=== PATIENT | male | born 1940 | race Caucasian/White ===

== ENCOUNTER 2018-12-09 09:11 | Inpatient (IN) | payer MEDICARE ==
--- NOTE | 2018-11-30 15:32 | HP ---
HISTORY AND PHYSICAL: DATE OF ADMISSION/SURGERY: 12/09/18 DATE OF OFFICE VISIT: 11/28/18 SURGEON: Patricia Beverly MD.* (DICTATED BY AMBER SANDERS) PROCEDURE: Left total knee arthroplasty. CHIEF COMPLAINT: Left knee pain. HISTORY OF PRESENT ILLNESS: Mr. Yen is a 77-year-old gentleman with end- stage osteoarthritis of the left knee. He has failed conservative treatment and elected to proceed with a left total knee arthroplasty. PAST MEDICAL HISTORY: COPD, history of stroke, chronic kidney disease, diabetes , GERD, and skin cancer. PAST SURGICAL HISTORY: Teeth extraction and surgery for a fractured arm. CURRENT MEDICATIONS: 1. Omeprazole 20 mg a day. 2. Atorvastatin calcium 40 mg q.h.s. 3. Sertraline 100 mg daily. 4. Tylenol with Codeine. 5. Colace. 6. Vitamin B12. 7. Toprol 100 mg daily. 8. Amlodipine. 9. Centrum. 10. Adult vitamin. 11. Talavera' Colon Health. 12. Lutein. ALLERGIES: No known drug allergies. FAMILY HISTORY: Cancer, multiple sclerosis, diabetes, and stroke. SOCIAL HISTORY: This 77-year-old gentleman lives with his . He is a former smoker. He does not use drugs or alcohol. REVIEW OF SYSTEMS: A complete 14-point review of systems was reviewed with the patient. It was positive for GERD, diabetes, history of stroke, COPD, and stage 2 kidney disease. He denies a history of DVT, PE, hepatitis, HIV, or anesthesia problems. PHYSICAL EXAMINATION GENERAL: He is well developed, well nourished, in no acute distress. VITAL SIGNS: He stands 69 inches tall, weighs 230 pounds. Blood pressure 142/ 74, heart rate 74. HEENT: Normocephalic, atraumatic. NECK: Supple. No palpable lymph nodes. PULMONARY: The lungs are clear to auscultation bilaterally. CARDIO: Regular rate and rhythm. Strong S1, S2. ABDOMEN: Soft, nontender, nondistended. NEUROLOGIC: He is alert and oriented x3. MUSCULOSKELETAL: Left lower extremity: The skin is intact. There are no open wounds or abrasions. Range of motion is 10 to 120 degrees of flexion with patellofemoral crepitus. He has a 2+ dorsalis pedis pulse and intact sensation. He is able to dorsiflex and plantarflex. ASSESSMENT AND PLAN: Mr. Yen is a 77-year-old gentleman with severe end- stage osteoarthritis of the left knee. He has failed conservative treatment and elected to proceed with a left total knee arthroplasty. The surgery is scheduled for 12/09/[address] Beverly discussed the risks and benefits of the surgery at today's visit and all of his questions were answered. He will follow up with Dr. Beverly 2 weeks after the surgery. No TXA will be used in this patient because of his history of stroke and stage 2 kidney disease. AMBER SANDERS [id number]/[facility] #: [id number] MTDD
[~2018-12-09 09:11] MED LIST: Acetaminophen TAB* 325 MG PO ONE; Buffered Lidocaine 1% SYRIN* 1 ML/SYRINGE INTRADERM ONE; Lactated Ringers 1000 ML Bag* 1,000 ML IV SCH
[2018-12-09] MEDS ORDERED: ceFAZolin 2 GM PREMIX in ORs 2 GM/50 ML BAG ONE (09:37)
[2018-12-09] MEDS ORDERED: Acetaminophen TAB* 325 MG ONE (09:37)
[2018-12-09] MEDS ORDERED: Buffered Lidocaine 1% SYRIN* 1 ML/SYRINGE INTRADERM ONE (09:38)
[2018-12-09] MEDS ORDERED: fentaNYL* 50 MCG/ML 2 ML VIAL (100 MCG VIAL) ONE ×2 (09:50→09:51)
[2018-12-09] MEDS ORDERED: Midazolam* 1 MG/ML 2 ML VIAL (2 MG) ONE (09:50)
[2018-12-09] MEDS ORDERED: Propofol* 500 MG/50 ML BTL ONE (09:51)
[2018-12-09] MEDS ORDERED: Lidocaine 2% PF* 10 ML AMP ONE (09:51)
[2018-12-09] MEDS ORDERED: ROPIVACAINE 5 MG/ML 30 ML BTL (0.5%) ONE ×2 (11:50→12:24)
[2018-12-09] MEDS ORDERED: Bupivacaine 0.5% SDV PF* 30ML VIAL ONE (13:00)
[2018-12-09] MEDS ORDERED: EPHEDrine (Pressors)* 50 MG/ML VIAL ONE (13:38)
[2018-12-09] MEDS ORDERED: Morphine INJ* 2 MG/ML 1 ML SYRINGE (TWO MG - NEW SYRINGE VERSION) IV PRN (14:52)
[2018-12-09] MEDS ORDERED: oxyCODONE TAB* 5 MG TAB PO PRN (14:52)
[2018-12-09] MEDS ORDERED: Magnesium Hydroxide LIQ* 30 ML UDC PO PRN (14:52)
[2018-12-09] MEDS ORDERED: Ondansetron ODT TAB* 4 MG PO PRN (14:52)
[2018-12-09] MEDS ORDERED: Temazepam CAP* 15 MG PO PRN (14:52)
[2018-12-09] MEDS ORDERED: Ondansetron INJ* 2 MG/ML VIAL IV PRN (14:52)
[2018-12-09] MEDS ORDERED: diPHENhydraMINE PO* 25 MG PO PRN (14:52)
[2018-12-09] MEDS ORDERED: oxyCODONE/Acetamin 5/325 MG* TAB PO PRN (14:52)
[2018-12-09] MEDS ORDERED: diPHENhydraMINE IV* 50 MG/ML 1 ml VIAL (BENADRYL) IV PRN (14:52)
[2018-12-09] MEDS ORDERED: Polyethylene Glycol 3350* 17 GM PACKET PO PRN (14:52)
--- NOTE | 2018-12-09 16:39 | OP ---
Operative Report - Blank - Operative Report Date of Operation: 12/09/18 Note: ANNA MCKEON 1940 Date of Surgery: 12/09/18 Patricia Beverly MD Weight Loss Consultant: Jenifer CLARK did help throughout the procedure with preparation of the knee, wound retraction, manipulation of the knee, and wound closure. Anesthesiologist: Porsche KIMBALL Anesthesia Type: Spinal Preoperative Diagnosis: Left severe degenerative osteoarthritis of the knee Postoperative Diagnosis: As above Procedure Performed: Left Total Knee Arthroplasty Tourniquet time: 43 minutes Complications: None Specimen: Bone and cartilage from the left knee joint sent to pathology. Hardware Used: Cemented Daniel and Nephew total knee hardware was used - For the femur a size 6 left legion posterior stabilized femoral component, for the tibia a size 5 left sophia II tibial baseplate, for the insert a size 9mm 5-6 posterior stabilized articular polyethylene insert, and for the patella a size 32 3-peg all poly patella. Brief History/Indication: ANNA MCKEON was known in clinic and had a history of severe left knee pain and swelling. He failed conservative treatment with anti-inflammatories, pain pills, intra-articular injections and physical therapy. He elected to undergo left total knee arthroplasty due to continued pain and decreased quality of life. Radiographs showed severe end stage osteoarthritis of the knee with bone on bone contact. Informed consent was obtained from the patient. He understood the risks of surgery included but were not limited to: bleeding, infection, damage to nearby structures, intraoperative fracture, nerve palsy, failure of the hardware, early loosening, knee stiffness or loss of motion, anesthesia complications, stroke, heart attack , blood clot and . He wished to proceed. Intra-Operative Findings: Intraoperatively the patient was noted to have severe loss of cartilage in all 3 compartments of the knee. Description of the Procedure: ANNA MCKEON was identified in the preanesthesia unit. His left knee was marked as the correct operative side. Informed consent was signed and placed in the chart. The patient was taken to the operating room and placed under anesthesia without complication. A arriaga catheter was placed. A tourniquet was placed on the left thigh. The left lower extremity was prepped and draped in the usual sterile fashion. Preoperative time-out was made to correctly identify the patient, side and site. Appropriate intraoperative antibiotics were given within one hour of incision. Tourniquet was inflated. A midline incision was made and carried sharply down to the extensor mechanism. A new 10 blade was used to make a standard medial parapatellar arthrotomy. The patella was subluxed laterally. Electrocautery was used to dissect soft tissue off the superomedial tibia to the midsagittal plane. The knee was flexed up. The anterior horn of the lateral meniscus and the ACL were sharply incised. A drill was used to enter the distal femur. The intramedullary distal femoral cutting guide was pinned on the distal femur. The oscillating saw was used to make the distal femoral cut. The external rotation guide was pinned on the distal femur and the distal femur was sized to a size 6. The size 6 multi-cutting jig was pinned on the distal femur. The oscillating saw was used to make the appropriate 4 chamfer cuts. Next the PCL was completely released. The extramedullary tibial cutting guide was pinned on the proximal tibia and the oscillating saw was used to make the proximal tibial cut perpendicular to the mechanical axis of the tibia. The bone was carefully removed. The knee was brought out into full extension. The spacer block was placed and had excellent fit with the knee in full extension. The medial and lateral ligaments were well balanced. The flexion and extension gaps were well balanced. The knee was flexed up. [employer] medical front desk coordinator was placed both medially and laterally. Any remaining meniscus was removed with electrocautery. Curved osteotome was used to remove any posterior osteophytes. The tibial tray and drop filipe were placed and confirmed a satisfactory tibial cut. The size 6 left femoral trial was impacted onto the distal femur. This trial had excellent fit and stability. The box for the posterior stabilized implant was prepared using a box cut osteotome and a reamer. Next a tibial tray trial and 9 mm insert trial was placed. The knee was taken through a range of motion and had full extension to 130 degrees of flexion. Patellofemoral tracking was satisfactory. The patella was inverted and sized to a size 32. Three peg holes were drilled through the size 32 drill guide. The trial patella was placed and the knee was taken through a range of motion. There was satisfactory patellofemoral tracking. All trials were removed. The tibia was subluxed anteriorly and sized to a size 5. The proximal tibial was prepared with a size 5 keel punch. All bony cut surfaces were irrigated with sterile saline and dried. Final implants were cemented into place starting with the tibia, followed by the femur, and last the patella. A 9 mm insert trial was placed and the knee was brought into full extension. Tourniquet was turned down and the knee was copiously irrigated with sterile saline. Electrocautery was used to obtain meticulous hemostasis. Once the cement had fully cured, the insert trial was removed. Any excess cement was removed from around the hardware and capsule. Final insert chosen was a 9 mm posterior stabilized Sophia II articular insert size 5-6. Stability of the insert was checked and noted to be stable. The extensor mechanism was closed using number 1 vicryls. The rest of the incision was closed in a layered fashion using 0 and 2-0 vicryls. The skin was closed using 3-0 nylon suture. Sterile xeroform, 4x4s and webril were used to cover the incision. Lio wrap and cold pack were used to cover the dressings. The patients anesthesia was reversed without difficulty. He was taken to the PACU in stable condition. Intended weight-bearing will be as tolerated.
[2018-12-09] MEDS: Lactated Ringers 1000 ML Bag* 1,000 ML IV SCH (17:00)
[2018-12-09] MEDS: oxyCODONE/Acetamin 5/325 MG* TAB PO PRN ×2 (17:57→22:49)
[2018-12-09] MEDS: ceFAZolin 1 GM ADVAN(*) 1 GM in NS 0.9% 50 ML* 50 ML IVPB SCH (19:49)
[2018-12-09] MEDS: Magnesium Hydroxide LIQ* 30 ML UDC PO SCH (21:12)
[2018-12-09] MEDS: Cyclobenzaprine TAB* 10 MG PO PRN (21:14)
[2018-12-09] MEDS: Atorvastatin* 40 MG TAB PO SCH (21:15)
[2018-12-09] MEDS: Docusate CAP* 100 MG PO SCH (21:15)
--- NOTE | 2018-12-09 21:55 | CONS ---
CONSULTATION REPORT: DATE OF CONSULT: 12/09/18 PRIMARY CARE PROVIDER: Leonela Varma MD REQUESTING PROVIDER IN CONSULTATION: AMBER Alanis ATTENDING PHYSICIAN: Amee Armenta DO (dictated by AMBER Younger). REASON FOR CONSULTATION: Co-medical management. HISTORY OF PRESENT ILLNESS/HOSPITAL COURSE: I refer you to Dr. Patricia Beverly's history and physical dated on 11/28/18 for full and complete details, but in short, Mr. Yen is a 77-year-old male with a past medical history of hypertension, hyperlipidemia, prediabetes, history of CVA, who presented to [facility] today for an elective left total knee arthroplasty. The patient is seen postoperatively in his bed. He states that he has left knee pain rated at 8/ 10. He states that he has "trouble talking" since his stroke in 2001, but notes no changes recently. He has no other complaints. PAST MEDICAL HISTORY: 1. Hypertension. 2. Hyperlipidemia. 3. CKD. 4. History of CVA. 5. History of prediabetes. 6. GERD. 7. Skin cancer. PAST SURGICAL HISTORY: Eye, hernia. HOME MEDICATIONS: 1. Acetaminophen with codeine 2 tabs p.o. q.4 hours p.r.n. pain. 2. Amlodipine 10 mg p.o. daily. 3. Atorvastatin 40 mg p.o. at bedtime. 4. Cyanocobalamin 250 mcg p.o. daily. 5. Docusate sodium 100 mg p.o. b.i.d. 6. Lutein 20 mg p.o. daily. 7. Metoprolol succinate 100 mg p.o. daily. 8. Multivitamin/minerals 1 tab p.o. daily. 9. Omeprazole 20 mg p.o. daily. 10. Talavera' Colon Health probiotic 1 tab p.o. daily. 11. Sertraline 100 mg p.o. daily. DRUG ALLERGIES: No known drug allergies. FAMILY HISTORY: Father had CVA. Mother had colon cancer. No family history of diabetes mellitus or heart disease. SOCIAL HISTORY: The patient denies tobacco use. He is a former smoker. He denies alcohol use. REVIEW OF SYSTEMS: A 14-point review of systems has been performed and all the pertinent positives and negatives are in the HPI. All other systems are negative. PHYSICAL EXAM: Vital Signs: Temperature 96.3 temporal, heart rate 78, respiratory rate 16, oxygen saturation 92% on 2 L O2, blood pressure 152/84. General: Mr. Yen is a well-developed, well-nourished, older white male who is sitting up in bed. He appears to be in a moderate amount of discomfort. He is responding appropriately to questioning. Cardiovascular: Regular rate and rhythm with S1 and S2 present without murmurs, rubs, clicks, or gallops. There is no JVD or peripheral edema. Pulmonary: Symmetrical chest expansion without use of accessory muscles. Lungs: Clear to auscultation bilaterally anteriorly without rhonchi, wheezes, or rubs. Abdomen: Flat. Bowel sounds in all quadrants, nontender to palpation, soft. Musculoskeletal: Upper extremities with full range of motion. No pain or deformities. The left knee has a clean, dry and intact dressing in place with Cryo unit in place. Neuro: The patient is a awake. He is alert and oriented x3 with cranial nerves grossly intact. He has sensation intact to the bilateral distal lower extremities. ASSESSMENT AND PLAN: Mr. Yen is a 77-year-old male with a past medical history of hypertension, hyperlipidemia, prediabetes, history of cerebrovascular accident, who presented to [facility] today for an elective left total knee arthroplasty. The patient will be admitted inpatient for: 1. Left total knee arthroplasty. Management per Ortho. Pain control and bowel regimen per Ortho. PT and OT. 2. Hypertension. Continue amlodipine and metoprolol with hold parameters. 3. Hyperlipidemia. Continue atorvastatin. 4. Gastroesophageal reflux disease. Continue omeprazole. 5. Chronic kidney disease. Monitor creatinine. 6. Prediabetes. The patient states he has prediabetes. We will do a.c. fingersticks to monitor for need for intervention. 7. Skin cancer. The patient follows with dermatology (patient cannot remember the name of his unload associate) and his primary care provider, Dr. Leonela Varma. 8. DVT prophylaxis. Per Ortho, apixaban 2.5 mg p.o. b.i.d. 9. Code status. Full code. TIME SPENT: Approximately 30 minutes was spent on this consultation, greater than half of that time was spent with the patient obtaining history, performing physical, and reviewing the plan of care. SANIYA VO, AMBER [id number]/[facility] #: [id number] JOCELYNE
[2018-12-09] MEDS: Acetaminophen TAB* 325 MG PO SCH (22:59)
[2018-12-10] MEDS: traMADol TAB* 50 MG PO PRN (03:47)
[2018-12-10] MEDS: ceFAZolin 1 GM ADVAN(*) 1 GM in NS 0.9% 50 ML* 50 ML IVPB SCH ×2 (03:47→11:13)
[2018-12-10] MEDS: Lactated Ringers 1000 ML Bag* 1,000 ML IV SCH (05:07)
[2018-12-10 05:35] LABS: Hematocrit 39 % (42-52); Hemoglobin 13.1 g/dL (14.0-18.0); Mean Platelet Volume 6.8 fL (7.4-10.4); Platelet Count 183 10^3/uL (150-450)
[2018-12-10 06:01] LABS: BUN/Creatinine Ratio 24.3 (8-20); Calcium 8.8 mg/dL (8.6-10.3); EGFR African American 77.9 (>60); EGFR Non-African American 64.4 (>60); Potassium 3.9 mmol/L (3.5-5.0)
[2018-12-10] MEDS: Acetaminophen TAB* 325 MG PO SCH ×2 (06:26→12:53)
[2018-12-10] MEDS: Cyanocobalamin TAB* 500 MCG PO SCH (08:09)
[2018-12-10] MEDS: oxyCODONE/Acetamin 5/325 MG* TAB PO PRN ×3 (08:09→21:02)
[2018-12-10] MEDS: Apixaban* 2.5 MG TAB PO SCH ×2 (08:10→21:03)
[2018-12-10] MEDS: Sertraline* 100 MG TAB PO SCH (08:10)
[2018-12-10] MEDS: Vitamin THERAPEUTIC TAB PO SCH (08:11)
[2018-12-10] MEDS: Metoprolol Succinate XL TAB* 100 MG PO SCH (08:11)
[2018-12-10] MEDS: Pantoprazole TAB * 40 MG TAB PO SCH (08:11)
[2018-12-10] MEDS: amLODIPine TAB* 5 MG PO SCH (08:11)
[2018-12-10] MEDS: Docusate CAP* 100 MG PO SCH ×2 (08:11→21:03)
[2018-12-10] MEDS: Magnesium Hydroxide LIQ* 30 ML UDC PO SCH ×2 (08:13→21:03)
--- NOTE | 2018-12-10 08:52 | PN ---
Progress Note - Progress Note Date of Service: 12/10/18 SOAP: Subjective: Pt is doing well. Pain is controlled with medication. Denies F/C, CP/SOB or calf pain. low grade temp overnight that resolved Objective: PE- 78 y/o WDWN M, NAD LLE- dressing c/d/i, calf soft NT, +DF/PF ankle, +2 DP pulse. SILT distally Vital Signs Temp Pulse Resp BP Pulse Ox 97.8 F 102 18 158/84 93 12/10/18 07:53 12/10/18 07:53 12/10/18 08:17 12/10/18 07:53 12/10/18 07:53 Laboratory Results - last 24 hr 12/10/18 12/10/18 05:17 05:17 Hgb 13.1 L Hct 39 L Plt Count 183 MPV 6.8 L Sodium 138 Potassium 3.9 Chloride 105 Carbon Dioxide 26 Anion Gap 7 BUN 27 H Creatinine 1.11 Est GFR ( Amer) 77.9 Est GFR (Non-Af Amer) 64.4 BUN/Creatinine Ratio 24.3 H Glucose 150 H Calcium 8.8 Assessment: POD 1 Left TKA Plan: Cont PT/OT, WBAT Percocet for pain Eliquis for DVT prophylaxis Dressing change tomorrow to check incision may require RUSSELL depending on how he does with PT
[2018-12-10] MEDS ORDERED: amLODIPine TAB* 5 MG PO SCH (09:00)
[2018-12-10] MEDS ORDERED: Metoprolol Succinate XL TAB* 100 MG PO SCH (09:00)
[2018-12-10] MEDS: Atorvastatin* 40 MG TAB PO SCH (21:03)
--- NOTE | 2018-12-10 21:08 | PN ---
Subjective Date of Service: 12/10/18 Interval History: Reports did not sleep well last night. States that pain is controlled. Denies chest pain or shortness of breath. Denies n/v/d. Denies abd pain. Family History: Unchanged from Admission Social History: Unchanged from Admission Past Medical History: Unchanged from Admission Objective Active Medications: Acetaminophen (Tylenol Tab*) 975 mg PO Q8HR [facility] Last Admin: 12/10/18 12:53 Dose: Not Given Amlodipine Besylate (Norvasc Tab*) 10 mg PO DAILY [facility] Last Admin: 12/10/18 08:11 Dose: 10 mg Apixaban (Eliquis*) 2.5 mg PO BID [facility] Last Admin: 12/10/18 08:10 Dose: 2.5 mg Atorvastatin Calcium (Lipitor*) 40 mg PO BEDTIME [facility] Last Admin: 12/09/18 21:15 Dose: 40 mg Bisacodyl (Dulcolax Supp*) 10 mg TX DAILY PRN PRN Reason: CONSTIPATION Cyanocobalamin (Vitamin B12 Tab*) 250 mcg PO DAILY [facility] Last Admin: 12/10/18 08:09 Dose: 250 mcg Cyclobenzaprine HCl (Flexeril Tab*) 10 mg PO Q6H PRN PRN Reason: SPASMS Last Admin: 12/09/18 21:14 Dose: 10 mg Diphenhydramine HCl (Benadryl Iv*) 25 mg IV Q6H PRN PRN Reason: PRURITIS Diphenhydramine HCl (Benadryl Po*) 25 mg PO Q6H PRN PRN Reason: PRURITIS Docusate Sodium (Colace Cap*) 100 mg PO BID [facility] Last Admin: 12/10/18 08:11 Dose: 100 mg Lactated Ringer's (Lactated Ringers 1000 Ml Bag*) 1,000 mls @ 125 mls/hr IV PER RATE [facility] Last Admin: 12/09/18 10:09 Dose: 125 mls/hr Lactated Ringer's (Lactated Ringers 1000 Ml Bag*) 1,000 mls @ 100 mls/hr IV PER RATE [facility] Last Admin: 12/10/18 05:07 Dose: 100 mls/hr Lactulose (Lactulose*) 30 ml PO BID PRN PRN Reason: CONSTIPATION Magnesium Hydroxide (Milk Of Magnesia Liq*) 30 ml PO BID [facility] Last Admin: 12/10/18 08:13 Dose: 30 ml Magnesium Hydroxide (Milk Of Magnesia Liq*) 30 ml PO Q6H PRN PRN Reason: CONSTIPATION Metoprolol Succinate (Toprol Xl Tab*) 100 mg PO DAILY [facility] Last Admin: 12/10/18 08:11 Dose: 100 mg Morphine Sulfate (Morphine Inj (Syringe))*) 2 mg IV Q4H PRN PRN Reason: Pain - Unrelieved Multivitamins (Theragran Tab*) 1 tab PO DAILY [facility] Last Admin: 12/10/18 08:11 Dose: 1 tab Ondansetron HCl (Zofran Inj*) 4 mg IV Q6H PRN PRN Reason: NAUSEA Ondansetron HCl (Zofran Odt Tab*) 4 mg PO Q6H PRN PRN Reason: NAUSEA Oxycodone HCl (Roxycodone Tab*) 10 mg PO Q4H PRN PRN Reason: Pain - Breakthrough Last Admin: 12/09/18 19:49 Dose: 10 mg Oxycodone/Acetaminophen (Percocet 5/325 Tab*) 1 tab PO Q4H PRN PRN Reason: PAIN - MODERATE Oxycodone/Acetaminophen (Percocet 5/325 Tab*) 2 tab PO Q4H PRN PRN Reason: PAIN - SEVERE Last Admin: 12/10/18 14:22 Dose: 2 tab Pantoprazole Sodium (Protonix Tab*) 40 mg PO DAILY [facility] Last Admin: 12/10/18 08:11 Dose: 40 mg Polyethylene Glycol/Electrolytes (Miralax*) 17 gm PO DAILY PRN PRN Reason: Constipation Sertraline HCl (Zoloft*) 100 mg PO DAILY [facility] Last Admin: 12/10/18 08:10 Dose: 100 mg Temazepam (Restoril Cap*) 15 mg PO BEDTIME PRN PRN Reason: INSOMNIA Tramadol HCl (Ultram*) 50 mg PO Q6H PRN PRN Reason: PAIN - MODERATE Last Admin: 12/10/18 03:47 Dose: 50 mg Vital Signs - 8 hr 12/10/18 12/10/18 12/10/18 14:22 16:05 20:07 Temperature 97.6 F 97.1 F Pulse Rate 84 83 Respiratory 18 18 16 Rate Blood Pressure 169/76 143/95 (mmHg) O2 Sat by Pulse 92 Oximetry Oxygen Devices in Use Now: Nasal Cannula Appearance: appears comfortable resting in bed , no acute distress Eyes: No Scleral Icterus Ears/Nose/Mouth/Throat: Clear Oropharnyx, Mucous Membranes Moist Neck: NL Appearance and Movements; NL JVP, Trachea Midline Respiratory: Symmetrical Chest Expansion and Respiratory Effort, Clear to Auscultation Cardiovascular: NL Sounds; No Murmurs; No JVD, No Edema Extremities: No Edema, No Clubbing, Cyanosis Skin: No Rash or Ulcers, - - dresssing intact to left knee Neurological: Alert and Oriented x 3 Nutrition: Taking PO's Result Diagrams: 12/11/18 05:05 12/10/18 05:17 Assess/Plan/Problems-Billing Assessment: Mr. Yen is a 78 y.o male who was admitted for Left total knee arthroplasty has a hx of htn and hld. - Patient Problems (1) Status post total left knee replacement Current Visit: Yes Status: Acute Code(s): Z96.652 - PRESENCE OF LEFT ARTIFICIAL KNEE JOINT SNOMED Code(s): 6884954062683 Comment: Management per orthopedics pain management , bowel meds and PT/OT per orthopedics (2) HLD (hyperlipidemia) Current Visit: No Status: Chronic Code(s): E78.5 - HYPERLIPIDEMIA, UNSPECIFIED SNOMED Code(s): 70713245 Comment: - Continue statin (3) HTN (hypertension) Current Visit: No Status: Chronic Code(s): I10 - ESSENTIAL (PRIMARY) HYPERTENSION SNOMED Code(s): 31031717 Comment: Sbp 143-173 Continue norvasc, metoprolol (4) DVT prophylaxis Current Visit: No Status: Acute Code(s): HHY1576 - SNOMED Code(s): 593242877 Comment: - Continue eliquis (5) Full code status Current Visit: No Status: Acute Code(s): Z78.9 - OTHER SPECIFIED HEALTH STATUS SNOMED Code(s): 218881023 Status and Disposition: disposition per ortho
[2018-12-11] MEDS: Acetaminophen TAB* 325 MG PO SCH ×4 (00:14→21:24)
[2018-12-11 05:17] LABS: Hematocrit 38 % (42-52); Mean Platelet Volume 6.8 fL (7.4-10.4); Platelet Count 196 10^3/uL (150-450)
[2018-12-11] MEDS: oxyCODONE/Acetamin 5/325 MG* TAB PO PRN (06:26)
--- NOTE | 2018-12-11 09:18 | PN ---
Progress Note - Progress Note Date of Service: 12/11/18 SOAP: Subjective: Pt is doing well. Denies F/C, CP/SOB or calf pain. Confused this am. Objective: PE- 78 y/o WDWN M NAD LLE- dressing changed, inc c/d/i with no signs of infection, +DF/PF ankle, calf soft NT, +2 Dp pulse, SILT distally Vital Signs Temp Pulse Resp BP Pulse Ox 98.1 F 88 16 127/69 93 12/11/18 07:25 12/11/18 07:25 12/11/18 07:44 12/11/18 07:25 12/11/18 07:25 Laboratory Results - last 24 hr 12/11/18 05:05 Hgb 13.0 L Hct 38 L Plt Count 196 MPV 6.8 L Assessment: POD 2 Left TKA Plan: Cont PT/OT, WBAT Percocet for pain Eliquis for DVT prophylaxis Possible DC to [facility]RU vs SNF today or tomorrow
[2018-12-11] MEDS: Metoprolol Succinate XL TAB* 100 MG PO SCH (09:56)
[2018-12-11] MEDS: Sertraline* 100 MG TAB PO SCH (09:58)
[2018-12-11] MEDS: Vitamin THERAPEUTIC TAB PO SCH (09:58)
[2018-12-11] MEDS: Docusate CAP* 100 MG PO SCH ×2 (09:58→21:24)
[2018-12-11] MEDS: Pantoprazole TAB * 40 MG TAB PO SCH (09:58)
[2018-12-11] MEDS: amLODIPine TAB* 5 MG PO SCH (09:59)
[2018-12-11] MEDS: Apixaban* 2.5 MG TAB PO SCH ×2 (09:59→21:24)
[2018-12-11] MEDS: Magnesium Hydroxide LIQ* 30 ML UDC PO SCH ×2 (10:00→21:24)
[2018-12-11] MEDS: Cyanocobalamin TAB* 500 MCG PO SCH (10:15)
[2018-12-11] MEDS: Cyclobenzaprine TAB* 10 MG PO PRN (13:03)
[2018-12-11] MEDS ORDERED: Bisacodyl SUPP* 10 MG SUPP PR PRN (14:52)
--- NOTE | 2018-12-11 16:28 | PN ---
Subjective Date of Service: 12/11/18 Interval History: HOSPITALIST PROGRESS NOTE Patient sen and examined at bedside. Care reviewed and d/w Michelle Mckeon RN. He offers no new complaints today. Pain is controlled. More confused than baseline, especially overnight. Family History: Unchanged from Admission Social History: Unchanged from Admission Past Medical History: Unchanged from Admission Objective Active Medications: Acetaminophen (Tylenol Tab*) 975 mg PO Q8HR [facility] Last Admin: 12/11/18 13:03 Dose: 975 mg Amlodipine Besylate (Norvasc Tab*) 10 mg PO DAILY [facility] Last Admin: 12/11/18 09:59 Dose: 10 mg Apixaban (Eliquis*) 2.5 mg PO BID [facility] Last Admin: 12/11/18 09:59 Dose: 2.5 mg Atorvastatin Calcium (Lipitor*) 40 mg PO BEDTIME [facility] Last Admin: 12/10/18 21:03 Dose: 40 mg Bisacodyl (Dulcolax Supp*) 10 mg PA DAILY PRN PRN Reason: CONSTIPATION Cyanocobalamin (Vitamin B12 Tab*) 250 mcg PO DAILY [facility] Last Admin: 12/11/18 10:15 Dose: 250 mcg Cyclobenzaprine HCl (Flexeril Tab*) 10 mg PO Q6H PRN PRN Reason: SPASMS Last Admin: 12/11/18 13:03 Dose: 10 mg Diphenhydramine HCl (Benadryl Iv*) 25 mg IV Q6H PRN PRN Reason: PRURITIS Diphenhydramine HCl (Benadryl Po*) 25 mg PO Q6H PRN PRN Reason: PRURITIS Docusate Sodium (Colace Cap*) 100 mg PO BID [facility] Last Admin: 12/11/18 09:58 Dose: 100 mg Lactated Ringer's (Lactated Ringers 1000 Ml Bag*) 1,000 mls @ 125 mls/hr IV PER RATE [facility] Last Admin: 12/09/18 10:09 Dose: 125 mls/hr Lactated Ringer's (Lactated Ringers 1000 Ml Bag*) 1,000 mls @ 100 mls/hr IV PER RATE [facility] Last Admin: 12/10/18 05:07 Dose: 100 mls/hr Lactulose (Lactulose*) 30 ml PO BID PRN PRN Reason: CONSTIPATION Magnesium Hydroxide (Milk Of Magnesia Liq*) 30 ml PO BID [facility] Last Admin: 12/11/18 10:00 Dose: 30 ml Magnesium Hydroxide (Milk Of Magnesia Liq*) 30 ml PO Q6H PRN PRN Reason: CONSTIPATION Metoprolol Succinate (Toprol Xl Tab*) 100 mg PO DAILY [facility] Last Admin: 12/11/18 09:56 Dose: 100 mg Morphine Sulfate (Morphine Inj (Syringe))*) 2 mg IV Q4H PRN PRN Reason: Pain - Unrelieved Multivitamins (Theragran Tab*) 1 tab PO DAILY [facility] Last Admin: 12/11/18 09:58 Dose: 1 tab Ondansetron HCl (Zofran Inj*) 4 mg IV Q6H PRN PRN Reason: NAUSEA Ondansetron HCl (Zofran Odt Tab*) 4 mg PO Q6H PRN PRN Reason: NAUSEA Oxycodone HCl (Roxycodone Tab*) 10 mg PO Q4H PRN PRN Reason: Pain - Breakthrough Last Admin: 12/09/18 19:49 Dose: 10 mg Oxycodone/Acetaminophen (Percocet 5/325 Tab*) 1 tab PO Q4H PRN PRN Reason: PAIN - MODERATE Oxycodone/Acetaminophen (Percocet 5/325 Tab*) 2 tab PO Q4H PRN PRN Reason: PAIN - SEVERE Last Admin: 12/11/18 06:26 Dose: 2 tab Pantoprazole Sodium (Protonix Tab*) 40 mg PO DAILY [facility] Last Admin: 12/11/18 09:58 Dose: 40 mg Polyethylene Glycol/Electrolytes (Miralax*) 17 gm PO DAILY PRN PRN Reason: Constipation Last Admin: 12/11/18 10:00 Dose: 17 gm Sertraline HCl (Zoloft*) 100 mg PO DAILY [facility] Last Admin: 12/11/18 09:58 Dose: 100 mg Temazepam (Restoril Cap*) 15 mg PO BEDTIME PRN PRN Reason: INSOMNIA Tramadol HCl (Ultram*) 50 mg PO Q6H PRN PRN Reason: PAIN - MODERATE Last Admin: 12/10/18 03:47 Dose: 50 mg Vital Signs - 8 hr 12/11/18 12/11/18 12/11/18 08:30 11:20 13:03 Temperature 97.1 F Pulse Rate 89 Respiratory 16 18 18 Rate Blood Pressure 149/79 (mmHg) O2 Sat by Pulse 92 Oximetry 12/11/18 15:39 Temperature 97.4 F Pulse Rate 90 Respiratory 16 Rate Blood Pressure 128/68 (mmHg) O2 Sat by Pulse 91 Oximetry Oxygen Devices in Use Now: Nasal Cannula Appearance: Elderly gentleman, pleasantly confused, lying in bed in NAD Eyes: No Scleral Icterus Ears/Nose/Mouth/Throat: Mucous Membranes Moist Neck: Trachea Midline Extremities: - - CDI to Left knee Neurological: - - AAOx2, DAMIAN Result Diagrams: 12/11/18 05:05 12/10/18 05:17 Assess/Plan/Problems-Billing Assessment: Mr. Yen is a 78 yo M with PMH of HTN, HLD, CKD, CVA, vascular dementia, glucose intolerance, GERD; who was admitted for an elective left TKA. - Patient Problems (1) Status post total left knee replacement Comment: - Management as per Ortho. (2) Delirium Comment: - Post op delirium. - In the setting of know vascular dementia, surgery, opioid use. - Son educated at bedside. - Try to minimize opioid use as tolerated. - Supportive care. (3) HTN (hypertension) Comment: - Controlled. - Continue Amlodipine and Metoprolol. (4) HLD (hyperlipidemia) Comment: - Continue Atorvastatin. (5) Glucose intolerance Comment: - Continue consistent carb diet and monitor FS. (6) DVT prophylaxis Comment: - Apixaban as per Ortho. (7) Full code status Status and Disposition: Inpatient. Hospitalist service will continue to follow with you.
[2018-12-11] MEDS: Atorvastatin* 40 MG TAB PO SCH (21:24)
[2018-12-11] MEDS: traMADol TAB* 50 MG PO PRN (21:50)
[2018-12-12 05:56] LABS: Hematocrit 38 % (42-52); Hemoglobin 12.5 g/dL (14.0-18.0); Platelet Count 236 10^3/uL (150-450)
[2018-12-12 06:11] LABS: BUN/Creatinine Ratio 29.4 (8-20); Calcium 8.9 mg/dL (8.6-10.3); EGFR African American 61.6 (>60); EGFR Non-African American 50.9 (>60); Potassium 4.3 mmol/L (3.5-5.0)
[2018-12-12] MEDS: Acetaminophen TAB* 325 MG PO SCH (06:14)
[2018-12-12 07:26] VITALS: BP 135/58
--- NOTE | 2018-12-12 09:20 | DS ---
Orthopedic Discharge Summary - Discharge Summary Date of Admission:12/09/18 Date of Discharge: 12/12/2018 Date of Surgery: 12/09/18 Attending Orthopedic Provider: Dr. Beverly Pre-operative Diagnosis: Left knee osteoarthritis Operative Procedure: Left total knee replacement Disposition of Patient: [facility] Condition of Patient: Good History: ANNA MCKEON is a 78 year old M with years of increasingly severe left knee pain. Patient has failed conservative management and has elected to undergo a left total knee replacement Hospital Course: ANNA was admitted to [facility] on 12/09/18. Patient underwent a left total knee replacement without complication followed by a brief recovery in PACU and transfer to the Short Stay Surgical Unit in stable condition. Our hospitalist service, physical therapy and occupational therapy also participated in this patients care. Post-op day 1: patient was alert and in no acute distress. Dressing was clean, dry and intact. Operative extremity dorsiflexion and plantarflexion intact, sensation intact to light touch distally, DP2+. Post-op day two: dressing was changed, incision was clean , dry and intact.Post-op day three: dressing was changed again, incision was clean, dry and intact. Patient was deemed to be medically and orthopedically stable for discharge to [facility]. Home Medications Medication Instructions Recorded Confirmed Type Amlodipine Besylate [Norvasc 10 mg 10 mg PO DAILY 05/29/17 12/09/18 History tab] Metoprolol Succinate 100 mg PO DAILY 05/29/17 12/09/18 History Atorvastatin* [Lipitor 40 MG*] 40 mg PO BEDTIME 11/28/18 12/09/18 History Cyanocobalamin TAB* [Vitamin B12 250 mcg PO DAILY 11/28/18 12/09/18 History TAB*] Docusate Sodium [Colace] 100 mg PO BID 11/28/18 12/09/18 History Lutein 20 mg PO DAILY 11/28/18 12/09/18 History Multivit-Mins/Iron/Folic/Lycop 1 tab PO DAILY 11/28/18 12/09/18 History [Centrum Men's Tablet] Omeprazole 20 mg PO DAILY 11/28/18 12/09/18 History Dain Colon Health Probiotic 1 tab PO DAILY 11/28/18 12/09/18 History Sertraline HCl [Zoloft] 100 mg PO DAILY 11/28/18 12/09/18 History Apixaban* [Eliquis*] 2.5 mg PO BID tab 12/11/18 Rx oxyCODONE/Acetamin 5/325 MG* 1 tab PO Q4H PRN tab 12/11/18 Rx [Percocet 5/325 TAB*] oxyCODONE/Acetamin 5/325 MG* 2 tab PO Q4H PRN tab 12/11/18 Rx [Percocet 5/325 TAB*] Discharge Instructions following Orthopedic Surgery: Activity: * Weight Bearing as tolerated * Continue physical therapy and occupational therapy exercises as shown Wound care: * OK to shower on post-op day 3, no bathing, swimming, or submerging wound. * Use gentle soap, pat dry. Cover with gauze, ALLIE wrap and tape. Call Orthopedic office for: * Increased drainage * Redness * Increased pain * Fever Go to ER with shortness of breath or chest pain. Diet: * Regular diet * Increase fluids and fiber to prevent constipation. * Continue to use stool softeners, call office if no bowel motion within 48 hours. Medications See Home Medication List in your packet for medications that you should take after discharge. DVT Prophylaxis: Eliquis Dosin.5 mg, 1 tab every 12 hours x 30 days post op Pain Control: Percocet Dosin/325 mg 1-2 tabs by mouth every 4-6 hours as needed for pain. Maximum of 10 tabs per day. Please note that Percocet contains Tylenol (acetaminophen). Maximum daily dose of Tylenol is 4000 mg from all sources. Antibiotics are required prior to any dental work. FOLLOW UP: Follow up with [[facility]] Within 10-14 days, call for appointment Please call our office with any questions or concerns ([phone])
[2018-12-12] MEDS: Cyanocobalamin TAB* 500 MCG PO SCH (09:44)
[2018-12-12] MEDS: Docusate CAP* 100 MG PO SCH (09:44)
[2018-12-12] MEDS: Metoprolol Succinate XL TAB* 100 MG PO SCH (09:44)
[2018-12-12] MEDS: Vitamin THERAPEUTIC TAB PO SCH (09:44)
[2018-12-12] MEDS: Magnesium Hydroxide LIQ* 30 ML UDC PO SCH (09:44)
[2018-12-12] MEDS: Sertraline* 100 MG TAB PO SCH (09:45)
[2018-12-12] MEDS: Pantoprazole TAB * 40 MG TAB PO SCH (09:45)
[2018-12-12] MEDS: Apixaban* 2.5 MG TAB PO SCH (09:45)
[2018-12-12] MEDS: amLODIPine TAB* 5 MG PO SCH (09:45)
== END 2018-12-12 10:40 | DRG 470 ==
LOC: AA 09:11 → SSU 16:54
PROVIDERS: ADMIT Orthopaedic Surgery Adult Reconstructive Orthopaedic Surgery; ATTEND Orthopaedic Surgery Adult Reconstructive Orthopaedic Surgery
PROC: 0SRD0J9 Replacement of Left Knee Joint with Synthetic Substitute, Cemented, Open Approach (ICD-10-PCS; principal; 2018-12-09 12:30)
DX: M17.12 Unilateral primary osteoarthritis, left knee (principal); F05 Delirium due to known physiological condition; E11.22 Type 2 diabetes mellitus with diabetic chronic kidney disease; J44.9 Chronic obstructive pulmonary disease, unspecified; M25.762 Osteophyte, left knee; I12.9 Hypertensive chronic kidney disease with stage 1 through stage 4 chronic kidney disease, or unspecified chronic kidney disease; N18.2 Chronic kidney disease, stage 2 (mild); K21.9 Gastro-esophageal reflux disease without esophagitis; Z86.73 Personal history of transient ischemic attack (TIA), and cerebral infarction without residual deficits; Z85.828 Personal history of other malignant neoplasm of skin; Z87.891 Personal history of nicotine dependence; Z79.1 Long term (current) use of non-steroidal anti-inflammatories (NSAID); Z79.899 Other long term (current) drug therapy; Z83.3 Family history of diabetes mellitus; Z82.3 Family history of stroke; Z82.69 Family history of other diseases of the musculoskeletal system and connective tissue; Z80.0 Family history of malignant neoplasm of digestive organs
CPT/HCPCS: 36415; 78452; 80048; 85014; 85018; 85049; 88305; 88311; 93017; A9270-GY; A9502; C1776; G8978-GP-CK; G8979-GP-CI; J0690; J2001; J2250; J2704; J2785; J2795; J3010; J3490

== ENCOUNTER 2018-12-12 09:12 | Inpatient (IN) | payer MEDICARE ==
[2018-12-12] MEDS: Atorvastatin* 40 MG TAB PO SCH (18:11)
--- NOTE | 2018-12-12 20:18 | HP ---
ADMISSION HISTORY AND PHYSICAL: DATE OF ADMISSION: 12/12/18 REASON FOR ADMISSION: Left total knee replacement. HISTORY OF PRESENT ILLNESS: Christina Yen is a 78-year-old male. He has a history of vascular dementia as well as depression, chronic kidney disease, hypertension, and sleep apnea. He does not use a CPAP. He has a history of chronic lacunar infarcts and has been diagnosed with vascular dementia, but has not seen neurology locally. I do not think he takes anything for stroke prevention. The patient has a history of right knee pain going back many years. He had tried and failed conservative treatment including injections. He decided to undergo a left total knee replacement after radiographs were done, which showed severe end- stage osteoarthritis. He was admitted to [facility] on 12/09/18 and underwent a total knee replacement that day. Postoperatively, he had a lot of difficulty with confusion. He was followed with the hospitalists. The patient's opioids were minimized, but otherwise no specific treatment was done. He apparently has a baseline expressive aphasia, which was more pronounced after surgery. He was felt to have physical therapy, occupational therapy and speech therapy needs. He is now being admitted for inpatient rehab so that he might return to independent living. PAST MEDICAL HISTORY: Significant for the aforementioned vascular dementia. Apparently, he has an expressive aphasia. He has a history of chronic kidney disease as well and sleep apnea as well as a fasting glucose intolerance. He has a history of gastroesophageal reflux disease as well. MEDICATIONS: Current medications include: 1. Toprol-XL. 2. Lipitor. 3. Eliquis for DVT prophylaxis. 4. Norvasc. 5. Protonix. 6. Zoloft. ALLERGIES: The patient has no known drug allergies. SOCIAL HISTORY: He is a nonsmoker. He may have been smoker in the past. He rarely drinks. He lives with his in a 2-story house. Apparently, there are 16 or 17 steps between levels. He does have [facility] 7 days a week. His had a stroke and is disabled as well. REVIEW OF SYSTEMS: The patient reports no current shortness of breath or chest pain. PHYSICAL EXAMINATION VITAL SIGNS: The patient's temperature is 98.3, blood pressure is 134/74, pulse 73, respirations 15. HEENT: Extraocular movements are intact. Tongue is midline. NECK: Supple. LUNGS: Sound clear to auscultation bilaterally. HEART: Heart sounds are regular. S1 and S2 are audible. ABDOMEN: Soft and nontender. EXTREMITIES: Left knee has a wound which is clean and dry. Left knee is somewhat edematous. Peripheral pulses are intact. NEUROLOGIC: Sensation appears to be intact. Muscle strength is 5/5, except the left leg which is 3/5 secondary to pain. The patient is alert. He is oriented to himself. He does seem to have word-finding difficulties. FUNCTIONAL EXAM: He transfers with min assist. ASSESSMENT: Left total knee replacement. PLAN: Our plan is to integrate him into a comprehensive therapeutic rehab program with the following goals: 1. Physical Therapy will work with the patient. They are going to work on functional transfer training and ambulation training with a walker. 2. Occupational Therapy will see the patient and work on his activities of daily living including toileting and toilet transfers. 3. Eliquis for DVT prophylaxis. 4. Continue his Toprol as well as Norvasc for hypertension. 5. Adequate analgesia without adding to confusion. 6. Bowels will be regulated. 7. [employer] will be closely involved to make sure that any services and equipment the patient requires are in place prior to discharge. 8. Family training as appropriate. 9. Advance directives. The patient is a full code. His sons are his healthcare proxies. 10. Home with appropriate services. ESTIMATED LENGTH OF STAY: 7 to 10 days. [id number]/CPS #: [id number] MTDD
[2018-12-12] MEDS: Apixaban* 2.5 MG TAB PO SCH (20:21)
[2018-12-12] MEDS: Acetaminophen TAB* 325 MG PO PRN (20:22)
[2018-12-12] MEDS: Senna TAB 8.6 mg* TAB PO PRN (20:22)
[2018-12-12] MEDS: Docusate CAP* 100 MG PO SCH (20:22)
[2018-12-12] MEDS: Magnesium Hydroxide LIQ* 30 ML UDC PO PRN (20:24)
[2018-12-13] MEDS: Acetaminophen TAB* 325 MG PO PRN ×3 (02:24→20:46)
[2018-12-13] MEDS: amLODIPine TAB* 5 MG PO SCH (08:24)
[2018-12-13] MEDS: Apixaban* 2.5 MG TAB PO SCH ×2 (08:25→20:46)
[2018-12-13] MEDS: Docusate CAP* 100 MG PO SCH ×2 (08:25→20:46)
[2018-12-13] MEDS: Sertraline* 100 MG TAB PO SCH (08:26)
[2018-12-13] MEDS: Pantoprazole TAB * 40 MG TAB PO SCH (08:26)
[2018-12-13] MEDS: Vitamin THERAPEUTIC TAB PO SCH (08:26)
[2018-12-13] MEDS: Metoprolol Succinate XL TAB* 100 MG PO SCH (08:26)
[2018-12-13] MEDS ORDERED: Influenza VAC *QUAD* 2019-20* 0.5 ML SYRINGE IM ONE (09:00)
--- NOTE | 2018-12-13 12:32 | PMRUTEAM ---
PMRU: Team Meeting Current Status: Physical Therapy: Current Status Current Rolling Status Partial/Moderate Current Supine <-> Sit Status Partial/Moderate Current Sit <-> Stand Status Supervision/Touching Current Bed <-> Chair Status Setup or Clean-up Assist Transfer/Bed Mobility Rolling Walker Recommended Devices Current Picking Up Object Supervision/Touching Status Current Car Transfer Status Not attempted due to Current Ambulation Assistance Supervision/Touching Status Ambulation Assistive Device Rolling Walker Ambulation Conditions Two or More Turns Current Ambulation Distance 100, 150 Current Wheelchair Propulsion Not Applicable Ability Status Current Stair Climbing Status Supervision/Touching Stair Climbing Assistive Left Railing,Right Railing Devices Number of Stairs Climbed 5 Current Curb Assistance Status Supervision/Touching Curb Assistive Devices Rolling Walker Objective Comments 5 steps with 2 rails, step-to pattern, CGA x1. Cues for sequencing and safety. Picking up object: min Ax1, RW/contracts paralegal Pt requires extensive seated rest breaks due to c/ o fatigue Occupational Therapy: Current Status Current Upper Body Dressing Setup or Clean-up Assist Status Current Lower Body Dressing Substantial/Maximal Status Current Footwear Status Dependent Current Bathing Status Substantial/Maximal Current Grooming Status Supervision/Touching Current Toileting Status Partial/Moderate Current Toilet Transfer Status Supervision/Touching Current Eating Status Setup or Clean-up Assist Nursing: Current Status Skin Deviations [Mid Back] Bruise Skin Deviations [Left Knee] Incision Skin Deviation Description [ S/P spinal anesthesia Mid Back] Skin Deviation Description [ ALLIE/cryounit in place Left Knee] Bladder Current Status Incontinent at times - urgency noted Bowel Current Status Continent - bowel meds given Last BM - 12/13/2018 Nutrition Current Status Eats 100% of most meals Medication Current Status Reinforcement with medications - educated on pain management Rec Therapy: Current Status Summary of Assessment and Recreation Therapy assessment started but not Clinical Impression complete as pt. appeared to have a difficult time answering questions and was stumbling over his words. Offered to continue our conversation at a later date, pt. was in agreement. Pt. was open to continued leisure visits and pet therapy while on the unit. Treatment Goals Pt. will engage in leisure activities while on the unit. Treatment Plan Provide recreation therapy services and encourage involvement. Update recreation therapy assessment. Nutrition: Current Status Monitoring new adm to PMRU s/p left TKA. Hx glucose intolerance, so provided a consistent carb diet. BG controlled 127-150 thus far; A1c n/a. PO intake was fair post-op, but perhaps improving ( ate 100% this a.m.). Skin is intact. No immediate nutrition concerns. Full nutrition assessement planned 12/19 per NDS protocol. Goals: Physical Therapy: Goals Goals to Be Accomplished in ( 10-14 Days) Goal: Rolling Assistance Independent Goal Supine <-> Sit Status Independent Goal Sit <-> Stand Status Independent Goal Bed <-> Chair Status Independent Transfer/Bed Mobility Rolling Walker Recommended Devices Goal: Picking Up Object Independent Goal: Car Transfer Status Setup or Clean-up Assist Goal: Ambulation Assistance Independent Ambulation Assistive Devices Rolling Walker Ambulation Distance (ft) 150 Goal: Wheelchair Propulsion Not Applicable Ability Goal: Stairs Assistance Independent Stairs Recommended Devices Two Rails Number of Stairs 5 Goal: Curb Assistance Independent Goal: Home Exercise Program Independent Assistance Occupational Therapy: Goals Goals to be Completed in (Days 10-14 ) Goal Upper Body Dressing Supervision/Touching Routine Goal Lower Body Dressing Supervision/Touching Routine Goal Footwear Status Supervision/Touching Goal Bathing Routine (OT) Supervision/Touching Goal Grooming Routine Supervision/Touching Goal Toilet Hygiene and Supervision/Touching Clothing Management Routine Goal Toilet Transfer Routine Supervision/Touching Goal Functional Transfers for Supervision/Touching ADL Goal Feeding Routine Setup or Clean-up Assist Nutrition: Goals Intervention Goals 1. adequate intake to support hydration and lean body mass without add'l wt gain 2. glycemic control within inpatient parameters; no s/sx hypo-hyperglycemia 3. achieve and maintain serum electrolytes WNL 4. regulation of bowel pattern; no c/o constipation (or diarrhea) Speech: Goals Speech Goal 1 Language Expression Goal 1 Comments Language Expression Goals: Long-Term Goal: Pt will use conversational repair strategies to cooperatively find words in structured conversation, 100% accuracy, given extra time, Independently. Status: Goal established Short-Term Goal: Pt will use conversational repair strategies to cooperatively find words in structured language activities, 75% accuracy, given skilled instruction, Moderate cueing, and extra time. Status: Goal established Speech Goal 2 Memory Speech Goal 2 Comments Memory Goals: Long-Term Goal: Pt will use compensatory strategies to encode and retrieve 5/5 new items after delay of 20 minutes, Independently, for independence in mobility safety, ADLs and community access. Status: Goal established Short-term Goal: Pt will use compensatory strategies to encode and retrieve 4/4 new items after delay of 4 minutes, given skilled instruction, Moderate cueing, and extra time. Status: Goals established. Nursing: Goals Bladder Goal Independent with toileting Bowel Goal Independent with toileting Nutrition Goal Eats 100% of all meals Medication Goal Reinforcement with medications Care Plan: Care Plan ADL's - Improve/Maintain Start: 12/12/18 14:35 Freq: DAILY@0700,1900 Status: Active Target: 12/13/18 Protocol: Activity Type Activity Date Activity User E-Sign Co-Sign Detail Recorded Client Recorded Date Recorded By Document 12/12/18 14:35 [id number] [id number] 12/12/18 14:35 [id number] 12/12/18 14:35 PMRU Outcome: ADL's/ADL Transfers Orders/Interventions Occupational Therapy Evaluation & Treatment Communication Tool in Patient Room Device Yes Address Deficits Secondary To: L TKA Patient to receive OT 5x/wk for 60-120 Therex min/day Self Care Management Group Therapy UE/LE ADL's with Assist Yes: S ADL Transfers with Assist Yes: S Toileting: Transfers,Clothing Management Yes: S ,Hygeine w/Assist Light Kitchen/Laundry w/Assist No Other Outcome/Goals Pt is a 78 year old male s/p Left TKA with increased confusion postoperatively . Pt's son present during evaluation and able to provide information on PLOF and home setup and assist in cueing pt to participate throughout. Pt is currently with confusion, pain, fatigue, decreased balance which limit independence with bathing, dressing toileting, transfers and will benefit from skilled OT intervention to maximize independence and safety. Progression Toward Outcome/Goals Goal Initiation Communication-Improve/Maintain Start: 12/12/18 12:54 Freq: DAILY@0700,1900 Status: Active Target: 12/19/18 Protocol: Activity Type Activity Date Activity User E-Sign Co-Sign Detail Recorded Client Recorded Date Recorded By Document 12/13/18 00:38 [id number] [email or web address] 12/13/18 00:38 [id number] 12/13/18 00:38 PMRU Outcome: Communication/Cognitive Status Current Communication Outcome/Goals Makes Needs Known Effectively Progression Toward Outcomes/Goals Progressing Discharge Planning - Improve/Maintain Start: 12/12/18 12:54 Freq: DAILY@0700,1900 Status: Active Target: 12/19/18 Protocol: Activity Type Activity Date Activity User E-Sign Co-Sign Detail Recorded Client Recorded Date Recorded By Document 12/13/18 07:00 [id number] [email or web address] 12/13/18 09:49 [id number] 12/13/18 07:00 PMRU Outcome: Discharge Planning Current Discharge Planning Outcome/Goals Demonstrates Understanding of Discharge Plan Progression Toward Outcome/Goals Goal Initiation Metabolic Status- Improve/Maintain Start: 12/12/18 12:54 Freq: DAILY@[id number] Status: Active Target: 12/19/18 Protocol: Activity Type Activity Date Activity User E-Sign Co-Sign Detail Recorded Client Recorded Date Recorded By Document 12/13/18 07:00 [id number] [email or web address] 12/13/18 09:55 [id number] 12/13/18 07:00 PMRU Outcome: Metabolic Status Have Fingersticks Been Ordered Yes Fingerstick Order Frequency BID Current Metabolic Status Outcome/Goals Maintain/ Improve Metabolic Status Demonstrate Knowledge of Prevention/ Treatment of Metabolic Imbalances Progression Toward Outcome/Goals Progressing Mobility- Improve/Maintain Start: 12/12/18 12:54 Freq: DAILY@ Status: Active Target: 12/22/18 Protocol: Activity Type Activity Date Activity User E-Sign Co-Sign Detail Recorded Client Recorded Date Recorded By Document 12/12/18 16:09 [id number] 12/12/18 16:10 [id number] 12/12/18 16:09 PMRU Outcome: Mobility Physical Therapy Evaluation and Yes Treatment Activity OOB with Assistance Yes WBAT Yes NWB No TTWB No Device Yes Assistance Yes Patient to be seen 5x/wk for 60-120 min/ Therex day for: Mobility Training Gait Training Balance Current Mobility Outcome/Goals Improve Mobility Status Demonstrates Proper Use of Assistive Devices Progression Toward Outcome/Goals Goal Initiation Bed Mobility Yes: Independent Transfers Yes: Independent with RW Gait x ft Yes: 150' independent with RW W/C Mobility x ft No Up/Down Stairs Yes: 12 with 2 rails, independent With HEP Yes: Independent Neurological- Improve/Maintain Start: 12/12/18 12:54 Freq: DAILY@[id number] Status: Active Target: 12/19/18 Protocol: Activity Type Activity Date Activity User E-Sign Co-Sign Detail Recorded Client Recorded Date Recorded By Document 12/13/18 07:00 [id number] [email or web address] 12/13/18 09:49 [id number] 12/13/18 07:00 PMRU Outcome: Neurological Weakness/Aphasia Weakness Aphasia Current Neurological Outcome/Goals Maintain/ Achieve Baseline Neurological Status Prevent Avoidable Neurological Decline Maintain/ Improve Strength/ROM Progression Toward Outcome/Goals Progressing Pain/Comfort- Improve/Maintain Start: 12/12/18 12:54 Freq: DAILY@0700,1900 Status: Active Target: 12/19/18 Protocol: Activity Type Activity Date Activity User E-Sign Co-Sign Detail Recorded Client Recorded Date Recorded By Document 12/13/18 07:00 [id number] 12/13/18 09:49 [id number] 12/13/18 07:00 PMRU Outcome: Pain/Comfort Current Pain/Comfort Outcome/Goals Demonstrates Knowledge and Use of Available Comfort Measures Achieves Acceptable Comfort/Pain Level as Determined by Patient/Condit Maintain Comfort Level Allowing Patient to Fully Participate in Rehab Progression Toward Outcome/Goals Progressing Rec Therapy- Improve/Maintain Start: 12/12/18 12:54 Freq: DAILY@0700,1900 Status: Active Target: 12/13/18 Protocol: Activity Type Activity Date Activity User E-Sign Co-Sign Detail Recorded Client Recorded Date Recorded By Document 12/12/18 16:41 [id number] [email or web address] 12/12/18 16:41 [id number] 12/12/18 16:41 PMRU Outcome: Recreation Therapy Current Rec Ther Outcome/Goals Complete Rec Therapy Assessment Meet with Patient Regularly for Support Encourage Leisure Involvement Progression Toward Outcome/Goals Goal Initiation Respiratory - Improve/Maintain Start: 12/12/18 12:54 Freq: DAILY@699,1900 Status: Active Target: 12/19/18 Protocol: Activity Type Activity Date Activity User E-Sign Co-Sign Detail Recorded Client Recorded Date Recorded By Document 12/13/18 07:00 [id number] 12/13/18 09:49 [id number] 12/13/18 07:00 PMRU Outcome: Respiratory Does Patient Have a Trach No Current Respiratory Outcome/Goals Maintain/ Improve O2 Sat per MD Order Maintain/ Improve Baseline Respiratory Status Maintain/ Improve Activity Tolerance Prevent Pneumonia/ Atelectasis Progression Toward Outcome/Goals Progressing Safety- Improve/Maintain Start: 12/12/18 11:02 Freq: DAILY@0700,1900 Status: Active Target: 12/19/18 Protocol: Activity Type Activity Date Activity User E-Sign Co-Sign Detail Recorded Client Recorded Date Recorded By Document 12/13/18 07:00 [id number] 12/13/18 09:49 [id number] 12/13/18 07:00 PMRU Outcome: Safety Current Safety Outcome/Goals Remain Free of Injury or Harm Cooperates with Safety Measures for Least Restrictive Environment Prevent Falls/ Injury Other Safety Outcome/Goals PA/BA, pt near nurse's station Progression Toward Outcome/Goals Progressing - Interdisciplinary Staff Present Air Defense Control Officer/Social Work Staff Present: Anju Gtz LMSW Nursing Staff Present: Camelia Menjivar, RN OT Staff Present: Marychuy Cantu PT Staff Present: Michelle Vasquez QUILL LAYER Staff Present: Kai Blake Medicine Note: Length of Stay: 1 week Anticipated Discharge Destination: Home Tentative Discharge Date: 12/20/18 Discharged to: Home
[2018-12-13] MEDS: Atorvastatin* 40 MG TAB PO SCH (17:02)
--- NOTE | 2018-12-13 18:09 | PN ---
Progress Note Date of Service: 12/13/18 Note: ANNA MCKEON was visited. Therapy notes read and reviewed. He was discussed in interdisciplinary team rounds. He is making a fair amount of progress Current Medications: Active Medications Generic Name Dose Route Start Last Admin Trade Name Freq PRN Reason Stop Dose Admin Acetaminophen 650 mg 12/12/18 11:43 12/13/18 08:31 Tylenol Tab* PO 650 mg Q6H PRN Administration MILD PAIN or TEMP > 100.4 Amlodipine Besylate 10 mg 12/13/18 09:00 12/13/18 08:24 Norvasc Tab* PO 10 mg DAILY ALYSSA Administration Apixaban 2.5 mg 12/12/18 21:00 12/13/18 08:25 Eliquis* PO 2.5 mg BID ALYSSA Administration Atorvastatin Calcium 40 mg 12/12/18 17:00 12/13/18 17:02 Lipitor* PO 40 mg 1700 ALYSSA Administration Bisacodyl 10 mg 12/12/18 11:43 Dulcolax Supp* [place] DAILY PRN CONSTIPATION Docusate Sodium 100 mg 12/12/18 21:00 12/13/18 08:25 Colace Cap* PO 100 mg BID ALYSSA Administration Magnesium Hydroxide 30 ml 12/12/18 11:43 12/12/18 20:24 Milk Of Magnesia Liq* PO 30 ml Q6H PRN Administration CONSTIPATION Metoprolol Succinate 100 mg 12/13/18 09:00 12/13/18 08:26 Toprol Xl Tab* PO 100 mg DAILY ALYSSA Administration Multivitamins 1 tab 12/13/18 09:00 12/13/18 08:26 Theragran Tab* PO 1 tab DAILY ALYSSA Administration Oxycodone/Acetaminophen 1 tab 12/12/18 11:55 Percocet 5/325 Tab* PO Q4H PRN PAIN - MODERATE Pantoprazole Sodium 40 mg 12/13/18 09:00 12/13/18 08:26 Protonix Tab* PO 40 mg DAILY ALYSSA Administration Senna 2 tab 12/12/18 11:43 12/12/18 20:22 Senokot 8.6 Mg Tab* PO 2 tab BEDTIME PRN Administration CONSTIPATION Sertraline HCl 100 mg 12/13/18 09:00 12/13/18 08:26 Zoloft* PO 100 mg DAILY ALYSSA Administration Vital Signs: Vital Signs Temp Pulse Resp BP Pulse Ox 97.9 F 74 20 148/80 93 12/13/18 16:38 12/13/18 16:38 12/13/18 08:00 12/13/18 16:38 12/13/18 17:56 Exam: GENERAL:In no distress LUNGS: Clear bilaterally HEART: reg rhythm ABDOMEN: Soft, +BS EXTREMITIES: Left knee wound C/D/I NEUROLOGIC: alert and oriented. Aphasia. Motor strength 5/5 except LLE due to pain Assessment/Plan: 1. Left total knee arthroplasty: PT/OT. WBAT LLE. 2. Cognitive decline: working with MEDIA ASSOCIATE for expressive aphasia 3. DVT Prophylaxis: Eliquis 4. Advanced Directives: Sons are HCP. Full code 5. GERD: protonix 12/13/18 18:07 12/13/18 18:09
[2018-12-13] MEDS: Senna TAB 8.6 mg* TAB PO PRN (20:48)
[2018-12-14] MEDS: Acetaminophen TAB* 325 MG PO PRN ×3 (02:59→17:34)
[2018-12-14 04:37] LABS: ABS Basophils 0.1 10^3/ul (0-0.2); ABS Eosinophils 0.3 10^3/ul (0-0.6); ABS Lymphocytes 1.2 10^3/ul (1.0-4.8); ABS Monocytes 0.8 10^3/ul (0-0.8); ABS Neutrophils 7.5 10^3/ul (1.5-7.7); ABS Nucleated RBC 0.1 10^3/ul; Eosinophil % 3.4 %; Hematocrit 36 % (42-52); Hemoglobin 12.1 g/dL (14.0-18.0); Lymphocyte % 11.9 %; Mean Corpuscular HGB Conc 34 g/dL (31-36); Mean Corpuscular Hemoglobin 26 pg (27-31); Mean Corpuscular Volume 78 fL (80-94); Mean Platelet Volume 6.6 fL (7.4-10.4); Nucleated Red Blood Cells % 0.5; Platelet Count 278 10^3/uL (150-450); Red Blood Count 4.61 10^6 /uL (4.18-5.48); Red Cell Distribution Width 16 % (10-15); White Blood Count 9.9 10^3/uL (3.5-10.8)
[2018-12-14 04:53] LABS: Albumin 3.4 g/dL (3.2-5.2); Albumin/Globulin Ratio 1.1 (1-3); BUN/Creatinine Ratio 30.9 (8-20); Calcium 8.7 mg/dL (8.6-10.3); EGFR African American 78.7 (>60); EGFR Non-African American 65.1 (>60); Globulin 3.2 g/dL (2-4); Potassium 3.9 mmol/L (3.5-5.0); Total Bilirubin 1.5 mg/dL (0.2-1.0); Total Protein 6.6 g/dL (6.4-8.9)
[2018-12-14] MEDS: Sertraline* 100 MG TAB PO SCH (09:22)
[2018-12-14] MEDS: Metoprolol Succinate XL TAB* 100 MG PO SCH (09:22)
[2018-12-14] MEDS: Docusate CAP* 100 MG PO SCH ×2 (09:22→20:50)
[2018-12-14] MEDS: Vitamin THERAPEUTIC TAB PO SCH (09:22)
[2018-12-14] MEDS: Pantoprazole TAB * 40 MG TAB PO SCH (09:22)
[2018-12-14] MEDS: Apixaban* 2.5 MG TAB PO SCH ×2 (09:22→20:50)
[2018-12-14] MEDS: amLODIPine TAB* 5 MG PO SCH (09:22)
[2018-12-14 16:06] LABS: Urine Appearance Cloudy; Urine Bilirubin Negative (Negative); Urine Blood Negative (Negative); Urine Color Amber; Urine Glucose Negative (Negative); Urine Ketones Negative (Negative); Urine Nitrite Negative (Negative); Urine Protein Negative (Negative); Urine Specific Gravity 1.024 (1.010-1.030); Urine Urobilinogen Negative (Negative)
[2018-12-14] MEDS: Atorvastatin* 40 MG TAB PO SCH (16:33)
--- NOTE | 2018-12-14 17:55 | PN ---
Progress Note Date of Service: 12/14/18 Note: ANNA MCKEON was visited. Therapy notes read and reviewed. No complaints today but this morning staff thought he might have had a hallucination. Ordered U/A Current Medications: Active Medications Generic Name Dose Route Start Last Admin Trade Name Freq PRN Reason Stop Dose Admin Acetaminophen 650 mg 12/12/18 11:43 12/14/18 17:34 Tylenol Tab* PO 650 mg Q6H PRN Administration MILD PAIN or TEMP > 100.4 Amlodipine Besylate 10 mg 12/13/18 09:00 12/14/18 09:22 Norvasc Tab* PO 10 mg DAILY ALYSSA Administration Apixaban 2.5 mg 12/12/18 21:00 12/14/18 09:22 Eliquis* PO 2.5 mg BID ALYSSA Administration Atorvastatin Calcium 40 mg 12/12/18 17:00 12/14/18 16:33 Lipitor* PO 40 mg 1700 ALYSSA Administration Bisacodyl 10 mg 12/12/18 11:43 Dulcolax Supp* [place] DAILY PRN CONSTIPATION Docusate Sodium 100 mg 12/12/18 21:00 12/14/18 09:22 Colace Cap* PO 100 mg BID ALYSSA Administration Magnesium Hydroxide 30 ml 12/12/18 11:43 12/12/18 20:24 Milk Of Magnesia Liq* PO 30 ml Q6H PRN Administration CONSTIPATION Metoprolol Succinate 100 mg 12/13/18 09:00 12/14/18 09:22 Toprol Xl Tab* PO 100 mg DAILY ALYSSA Administration Multivitamins 1 tab 12/13/18 09:00 12/14/18 09:22 Theragran Tab* PO 1 tab DAILY ALYSSA Administration Oxycodone/Acetaminophen 1 tab 12/12/18 11:55 Percocet 5/325 Tab* PO Q4H PRN PAIN - MODERATE Pantoprazole Sodium 40 mg 12/13/18 09:00 12/14/18 09:22 Protonix Tab* PO 40 mg DAILY ALYSSA Administration Senna 2 tab 12/12/18 11:43 12/13/18 20:48 Senokot 8.6 Mg Tab* PO 2 tab BEDTIME PRN Administration CONSTIPATION Sertraline HCl 100 mg 12/13/18 09:00 12/14/18 09:22 Zoloft* PO 100 mg DAILY ALYSSA Administration Vital Signs: Vital Signs Temp Pulse Resp BP Pulse Ox 98.7 F 77 20 146/68 93 12/14/18 16:49 12/14/18 16:49 12/14/18 16:49 12/14/18 16:49 12/14/18 16:49 Lab Results: Laboratory Results - last 24 hr 12/13/18 12/14/18 12/14/18 07:35 04:21 04:21 WBC 9.9 RBC 4.61 Hgb 12.1 L Hct 36 L MCV 78 L MCH 26 L MCHC 34 RDW 16 H Plt Count 278 MPV 6.6 L Neut % (Auto) 76.0 Lymph % (Auto) 11.9 Andrew % (Auto) 8.0 Eos % (Auto) 3.4 Baso % (Auto) 0.7 Absolute Neuts (auto) 7.5 Absolute Lymphs (auto) 1.2 Absolute Monos (auto) 0.8 Absolute Eos (auto) 0.3 Absolute Basos (auto) 0.1 Absolute Nucleated RBC 0.1 Nucleated RBC % 0.5 Sodium 136 Potassium 3.9 Chloride 102 Carbon Dioxide 24 Anion Gap 10 BUN 34 H Creatinine 1.10 Est GFR ( Amer) 78.7 Est GFR (Non-Af Amer) 65.1 BUN/Creatinine Ratio 30.9 H Glucose 110 H POC Glucose (mg/dL) 128 H Calcium 8.7 Total Bilirubin 1.50 H AST 25 ALT 15 Alkaline Phosphatase 88 Total Protein 6.6 Albumin 3.4 Globulin 3.2 Albumin/Globulin Ratio 1.1 Urine Color Urine Appearance Urine pH Ur Specific [place] Urine Protein Urine Ketones Urine Blood Urine Nitrate Urine Bilirubin Urine Urobilinogen Ur Leukocyte Esterase Urine Glucose 12/14/18 12/14/18 07:43 15:49 WBC RBC Hgb Hct MCV MCH MCHC RDW Plt Count MPV Neut % (Auto) Lymph % (Auto) Andrew % (Auto) Eos % (Auto) Baso % (Auto) Absolute Neuts (auto) Absolute Lymphs (auto) Absolute Monos (auto) Absolute Eos (auto) Absolute Basos (auto) Absolute Nucleated RBC Nucleated RBC % Sodium Potassium Chloride Carbon Dioxide Anion Gap BUN Creatinine Est GFR ( Amer) Est GFR (Non-Af Amer) BUN/Creatinine Ratio Glucose POC Glucose (mg/dL) 133 H Calcium Total Bilirubin AST ALT Alkaline Phosphatase Total Protein Albumin Globulin Albumin/Globulin Ratio Urine Color Anju Urine Appearance Cloudy Urine pH 5.0 Ur Specific [place] 1.024 Urine Protein Negative Urine Ketones Negative Urine Blood Negative Urine Nitrate Negative Urine Bilirubin Negative Urine Urobilinogen Negative Ur Leukocyte Esterase Negative Urine Glucose Negative Exam: GENERAL:In no distress LUNGS: Clear bilaterally HEART: reg rhythm ABDOMEN: Soft, +BS EXTREMITIES: Left knee wound C/D/I NEUROLOGIC: alert and oriented. Aphasia. Motor strength 5/5 except LLE due to pain Assessment/Plan: 1. Left total knee arthroplasty: PT/OT. WBAT LLE. 2. Cognitive decline: working with SURGICAL DENTAL ASSISTANT for expressive aphasia 3. DVT Prophylaxis: Eliquis 4. Advanced Directives: Sons are HCP. Full code 5. GERD: protonix 12/14/18 17:55
[2018-12-15] MEDS: Acetaminophen TAB* 325 MG PO PRN ×3 (01:51→20:01)
[2018-12-15] MEDS: Metoprolol Succinate XL TAB* 100 MG PO SCH (10:01)
[2018-12-15] MEDS: Docusate CAP* 100 MG PO SCH ×2 (10:01→20:01)
[2018-12-15] MEDS: amLODIPine TAB* 5 MG PO SCH (10:01)
[2018-12-15] MEDS: Pantoprazole TAB * 40 MG TAB PO SCH (10:01)
[2018-12-15] MEDS: Apixaban* 2.5 MG TAB PO SCH ×2 (10:01→20:01)
[2018-12-15] MEDS: Vitamin THERAPEUTIC TAB PO SCH (10:01)
[2018-12-15] MEDS: Sertraline* 100 MG TAB PO SCH (10:01)
[2018-12-15] MEDS: Atorvastatin* 40 MG TAB PO SCH (16:22)
--- NOTE | 2018-12-15 19:41 | PN ---
Progress Note Date of Service: 12/15/18 Note: ANNA MCKEON was visited. Therapy notes read and reviewed. He is physically progressing well, but has had hallucinations seeing pictures on the wall of friends when there are no pictures. I met with his son to discuss progress. He is improving, but cognitively is lagging behind physical progress. Current Medications: Active Medications Generic Name Dose Route Start Last Admin Trade Name Freq PRN Reason Stop Dose Admin Acetaminophen 650 mg 12/12/18 11:43 12/15/18 10:06 Tylenol Tab* PO 650 mg Q6H PRN Administration MILD PAIN or TEMP > 100.4 Amlodipine Besylate 10 mg 12/13/18 09:00 12/15/18 10:01 Norvasc Tab* PO 10 mg DAILY ALYSSA Administration Apixaban 2.5 mg 12/12/18 21:00 12/15/18 10:01 Eliquis* PO 2.5 mg BID ALYSSA Administration Atorvastatin Calcium 40 mg 12/12/18 17:00 12/15/18 16:22 Lipitor* PO 40 mg 1700 ALYSSA Administration Bisacodyl 10 mg 12/12/18 11:43 Dulcolax Supp* [place] DAILY PRN CONSTIPATION Docusate Sodium 100 mg 12/12/18 21:00 12/15/18 10:01 Colace Cap* PO 100 mg BID ALYSSA Administration Magnesium Hydroxide 30 ml 12/12/18 11:43 12/12/18 20:24 Milk Of Magnesia Liq* PO 30 ml Q6H PRN Administration CONSTIPATION Metoprolol Succinate 100 mg 12/13/18 09:00 12/15/18 10:01 Toprol Xl Tab* PO 100 mg DAILY ALYSSA Administration Multivitamins 1 tab 12/13/18 09:00 12/15/18 10:01 Theragran Tab* PO 1 tab DAILY ALYSSA Administration Oxycodone/Acetaminophen 1 tab 12/12/18 11:55 Percocet 5/325 Tab* PO Q4H PRN PAIN - MODERATE Pantoprazole Sodium 40 mg 12/13/18 09:00 12/15/18 10:01 Protonix Tab* PO 40 mg DAILY ALYSSA Administration Senna 2 tab 12/12/18 11:43 12/13/18 20:48 Senokot 8.6 Mg Tab* PO 2 tab BEDTIME PRN Administration CONSTIPATION Sertraline HCl 100 mg 12/13/18 09:00 12/15/18 10:01 Zoloft* PO 100 mg DAILY ALYSSA Administration Vital Signs: Vital Signs Temp Pulse Resp BP Pulse Ox 97.5 F 77 20 158/87 97 12/15/18 15:52 12/15/18 15:52 12/15/18 15:52 12/15/18 15:52 12/15/18 18:33 Lab Results: Laboratory Results - last 24 hr 12/14/18 16:35 POC Glucose (mg/dL) 182 H Exam: GENERAL:In no distress LUNGS: Clear bilaterally HEART: reg rhythm ABDOMEN: Soft, +BS EXTREMITIES: Left knee wound C/D/I NEUROLOGIC: alert and oriented. Aphasia. Motor strength 5/5 except LLE due to pain Assessment/Plan: 1. Left total knee arthroplasty: PT/OT. WBAT LLE. 2. Cognitive decline: working with CARVING MACHINE OPERATOR for expressive aphasia 3. DVT Prophylaxis: Eliquis 4. Advanced Directives: Sons are HCP. Full code 5. GERD: protonix 12/15/18 19:41
[2018-12-16] MEDS: Acetaminophen TAB* 325 MG PO PRN ×3 (02:17→19:55)
[2018-12-16] MEDS: amLODIPine TAB* 5 MG PO SCH (08:33)
[2018-12-16] MEDS: Docusate CAP* 100 MG PO SCH ×2 (08:33→19:55)
[2018-12-16] MEDS: Apixaban* 2.5 MG TAB PO SCH ×2 (08:33→19:55)
[2018-12-16] MEDS: Vitamin THERAPEUTIC TAB PO SCH (08:34)
[2018-12-16] MEDS: Pantoprazole TAB * 40 MG TAB PO SCH (08:34)
[2018-12-16] MEDS: Metoprolol Succinate XL TAB* 100 MG PO SCH (08:40)
[2018-12-16] MEDS: Sertraline* 100 MG TAB PO SCH (08:41)
[2018-12-16] MEDS: oxyCODONE/Acetamin 5/325 MG* TAB PO PRN ×2 (12:58→23:08)
--- NOTE | 2018-12-16 18:23 | PN ---
Progress Note Date of Service: 12/16/18 Note: ANNA MCKEON was visited. Therapy notes read and reviewed. He remains aphasic. His mobility is progressing. Knee looks good Current Medications: Active Medications Generic Name Dose Route Start Last Admin Trade Name Freq PRN Reason Stop Dose Admin Acetaminophen 650 mg 12/12/18 11:43 12/16/18 08:34 Tylenol Tab* PO 650 mg Q6H PRN Administration MILD PAIN or TEMP > 100.4 Amlodipine Besylate 10 mg 12/13/18 09:00 12/16/18 08:33 Norvasc Tab* PO 10 mg DAILY ALYSSA Administration Apixaban 2.5 mg 12/12/18 21:00 12/16/18 08:33 Eliquis* PO 2.5 mg BID ALYSSA Administration Atorvastatin Calcium 40 mg 12/12/18 17:00 12/15/18 16:22 Lipitor* PO 40 mg 1700 ALYSSA Administration Bisacodyl 10 mg 12/12/18 11:43 Dulcolax Supp* [place] DAILY PRN CONSTIPATION Docusate Sodium 100 mg 12/12/18 21:00 12/16/18 08:33 Colace Cap* PO 100 mg BID ALYSSA Administration Magnesium Hydroxide 30 ml 12/12/18 11:43 12/12/18 20:24 Milk Of Magnesia Liq* PO 30 ml Q6H PRN Administration CONSTIPATION Metoprolol Succinate 100 mg 12/13/18 09:00 12/16/18 08:40 Toprol Xl Tab* PO 100 mg DAILY ALYSSA Administration Multivitamins 1 tab 12/13/18 09:00 12/16/18 08:34 Theragran Tab* PO 1 tab DAILY ALYSSA Administration Oxycodone/Acetaminophen 1 tab 12/12/18 11:55 12/16/18 12:58 Percocet 5/325 Tab* PO 1 tab Q4H PRN Administration PAIN - MODERATE Pantoprazole Sodium 40 mg 12/13/18 09:00 12/16/18 08:34 Protonix Tab* PO 40 mg DAILY ALYSSA Administration Senna 2 tab 12/12/18 11:43 12/13/18 20:48 Senokot 8.6 Mg Tab* PO 2 tab BEDTIME PRN Administration CONSTIPATION Sertraline HCl 100 mg 12/13/18 09:00 12/16/18 08:41 Zoloft* PO 100 mg DAILY ALYSSA Administration Vital Signs: Vital Signs Temp Pulse Resp BP Pulse Ox 97.7 F 72 16 152/73 96 12/16/18 04:45 12/16/18 04:45 12/16/18 14:35 12/16/18 04:45 12/16/18 07:30 Exam: GENERAL:In no distress LUNGS: Clear bilaterally HEART: reg rhythm ABDOMEN: Soft, +BS EXTREMITIES: Left knee wound C/D/I NEUROLOGIC: alert and oriented. Aphasia. Motor strength 5/5 except LLE due to pain Assessment/Plan: 1. Left total knee arthroplasty: PT/OT. WBAT LLE. 2. Cognitive decline: working with CIVIL ENGINEERING TEACHER for expressive aphasia 3. DVT Prophylaxis: Eliquis 4. Advanced Directives: Sons are HCP. Full code 5. GERD: protonix 12/16/18 18:24
[2018-12-16] MEDS: Atorvastatin* 40 MG TAB PO SCH (18:33)
[2018-12-17] MEDS: Acetaminophen TAB* 325 MG PO PRN ×2 (08:27→16:48)
[2018-12-17] MEDS: Apixaban* 2.5 MG TAB PO SCH ×2 (08:28→21:12)
[2018-12-17] MEDS: Metoprolol Succinate XL TAB* 100 MG PO SCH (08:28)
[2018-12-17] MEDS: Pantoprazole TAB * 40 MG TAB PO SCH (08:28)
[2018-12-17] MEDS: amLODIPine TAB* 5 MG PO SCH (08:28)
[2018-12-17] MEDS: Sertraline* 100 MG TAB PO SCH (08:28)
[2018-12-17] MEDS: Docusate CAP* 100 MG PO SCH ×2 (08:28→21:13)
[2018-12-17] MEDS: Vitamin THERAPEUTIC TAB PO SCH (08:28)
--- NOTE | 2018-12-17 14:44 | PN ---
Progress Note Date of Service: 12/17/18 Note: ANNA MCKEON was visited. Therapy notes read and reviewed. No complaints. He was able to sleep quite a bit overnight. Current Medications: Active Medications Generic Name Dose Route Start Last Admin Trade Name Freq PRN Reason Stop Dose Admin Acetaminophen 650 mg 12/12/18 11:43 12/17/18 08:27 Tylenol Tab* PO 650 mg Q6H PRN Administration MILD PAIN or TEMP > 100.4 Amlodipine Besylate 10 mg 12/13/18 09:00 12/17/18 08:28 Norvasc Tab* PO 10 mg DAILY ALYSSA Administration Apixaban 2.5 mg 12/12/18 21:00 12/17/18 08:28 Eliquis* PO 2.5 mg BID ALYSSA Administration Atorvastatin Calcium 40 mg 12/12/18 17:00 12/16/18 18:33 Lipitor* PO 40 mg 1700 ALYSSA Administration Bisacodyl 10 mg 12/12/18 11:43 Dulcolax Supp* [place] DAILY PRN CONSTIPATION Docusate Sodium 100 mg 12/12/18 21:00 12/17/18 08:28 Colace Cap* PO 100 mg BID ALYSSA Administration Magnesium Hydroxide 30 ml 12/12/18 11:43 12/12/18 20:24 Milk Of Magnesia Liq* PO 30 ml Q6H PRN Administration CONSTIPATION Metoprolol Succinate 100 mg 12/13/18 09:00 12/17/18 08:28 Toprol Xl Tab* PO 100 mg DAILY ALYSSA Administration Multivitamins 1 tab 12/13/18 09:00 12/17/18 08:28 Theragran Tab* PO 1 tab DAILY ALYSSA Administration Oxycodone/Acetaminophen 1 tab 12/12/18 11:55 12/16/18 23:08 Percocet 5/325 Tab* PO 1 tab Q4H PRN Administration PAIN - MODERATE Pantoprazole Sodium 40 mg 12/13/18 09:00 12/17/18 08:28 Protonix Tab* PO 40 mg DAILY ALYSSA Administration Senna 2 tab 12/12/18 11:43 12/13/18 20:48 Senokot 8.6 Mg Tab* PO 2 tab BEDTIME PRN Administration CONSTIPATION Sertraline HCl 100 mg 12/13/18 09:00 12/17/18 08:28 Zoloft* PO 100 mg DAILY ALYSSA Administration Vital Signs: Vital Signs Temp Pulse Resp BP Pulse Ox 97.6 F 71 18 156/78 94 12/17/18 04:32 12/17/18 04:32 12/17/18 04:32 12/17/18 04:32 12/17/18 08:00 Lab Results: Laboratory Results - last 24 hr 12/15/18 12/15/18 12/16/18 08:28 16:24 07:49 POC Glucose (mg/dL) 139 H 137 H 144 H 12/16/18 12/17/18 16:50 07:17 POC Glucose (mg/dL) 130 H 132 H Exam: GENERAL:In no distress LUNGS: Clear bilaterally HEART: reg rhythm ABDOMEN: Soft, +BS EXTREMITIES: Left knee wound C/D/I NEUROLOGIC: alert and oriented. Aphasia. Motor strength 5/5 except LLE due to pain Assessment/Plan: 1. Left total knee arthroplasty: PT/OT. WBAT LLE. 2. Cognitive decline: working with [employer] for expressive aphasia 3. DVT Prophylaxis: Eliquis 4. Advanced Directives: Sons are HCP. Full code 5. GERD: protonix 12/17/18 14:44
[2018-12-17] MEDS: Atorvastatin* 40 MG TAB PO SCH (16:48)
[2018-12-17] MEDS: oxyCODONE/Acetamin 5/325 MG* TAB PO PRN (21:12)
[2018-12-17] MEDS: Senna TAB 8.6 mg* TAB PO PRN (21:13)
[2018-12-18] MEDS: oxyCODONE/Acetamin 5/325 MG* TAB PO PRN ×2 (00:56→19:36)
[2018-12-18] MEDS: amLODIPine TAB* 5 MG PO SCH (08:44)
[2018-12-18] MEDS: Apixaban* 2.5 MG TAB PO SCH ×2 (08:44→19:36)
[2018-12-18] MEDS: Pantoprazole TAB * 40 MG TAB PO SCH (08:45)
[2018-12-18] MEDS: Metoprolol Succinate XL TAB* 100 MG PO SCH (08:45)
[2018-12-18] MEDS: Docusate CAP* 100 MG PO SCH ×2 (08:45→19:36)
[2018-12-18] MEDS: Sertraline* 100 MG TAB PO SCH (08:46)
[2018-12-18] MEDS: Vitamin THERAPEUTIC TAB PO SCH (08:46)
[2018-12-18] MEDS: Acetaminophen TAB* 325 MG PO PRN ×2 (08:46→15:10)
[2018-12-18] MEDS: Atorvastatin* 40 MG TAB PO SCH (16:21)
--- NOTE | 2018-12-18 17:14 | PN ---
Progress Note Date of Service: 12/18/18 Note: ANNA MCKEON was visited. Nursing notes read and reviewed. His verbal output is a lot more fluid this afternoon but he may have rested more today than he usually does Current Medications: Active Medications Generic Name Dose Route Start Last Admin Trade Name Freq PRN Reason Stop Dose Admin Acetaminophen 650 mg 12/12/18 11:43 12/18/18 15:10 Tylenol Tab* PO 650 mg Q6H PRN Administration MILD PAIN or TEMP > 100.4 Amlodipine Besylate 10 mg 12/13/18 09:00 12/18/18 08:44 Norvasc Tab* PO 10 mg DAILY ALYSSA Administration Apixaban 2.5 mg 12/12/18 21:00 12/18/18 08:44 Eliquis* PO 2.5 mg BID ALYSSA Administration Atorvastatin Calcium 40 mg 12/12/18 17:00 12/18/18 16:21 Lipitor* PO 40 mg 1700 ALYSSA Administration Bisacodyl 10 mg 12/12/18 11:43 Dulcolax Supp* [place] DAILY PRN CONSTIPATION Docusate Sodium 100 mg 12/12/18 21:00 12/18/18 08:45 Colace Cap* PO 100 mg BID ALYSSA Administration Magnesium Hydroxide 30 ml 12/12/18 11:43 12/12/18 20:24 Milk Of Magnesia Liq* PO 30 ml Q6H PRN Administration CONSTIPATION Metoprolol Succinate 100 mg 12/13/18 09:00 12/18/18 08:45 Toprol Xl Tab* PO 100 mg DAILY ALYSSA Administration Multivitamins 1 tab 12/13/18 09:00 12/18/18 08:46 Theragran Tab* PO 1 tab DAILY ALYSSA Administration Oxycodone/Acetaminophen 1 tab 12/12/18 11:55 12/18/18 00:56 Percocet 5/325 Tab* PO 1 tab Q4H PRN Administration PAIN - MODERATE Pantoprazole Sodium 40 mg 12/13/18 09:00 12/18/18 08:45 Protonix Tab* PO 40 mg DAILY ALYSSA Administration Senna 2 tab 12/12/18 11:43 12/17/18 21:13 Senokot 8.6 Mg Tab* PO 2 tab BEDTIME PRN Administration CONSTIPATION Sertraline HCl 100 mg 12/13/18 09:00 12/18/18 08:46 Zoloft* PO 100 mg DAILY ALYSSA Administration Vital Signs: Vital Signs Temp Pulse Resp BP Pulse Ox 97.8 F 71 18 142/84 97 12/18/18 15:19 12/18/18 15:19 12/18/18 15:19 12/18/18 15:19 12/18/18 15:19 Lab Results: Laboratory Results - last 24 hr 12/17/18 12/18/18 16:24 07:40 POC Glucose (mg/dL) 147 H 135 H Exam: GENERAL:In no distress LUNGS: Clear bilaterally HEART: reg rhythm ABDOMEN: Soft, +BS EXTREMITIES: Left knee wound C/D/I NEUROLOGIC: alert and oriented. Aphasia. Motor strength 5/5 except LLE due to pain Assessment/Plan: 1. Left total knee arthroplasty: PT/OT. WBAT LLE. 2. Cognitive decline: working with [employer] for expressive aphasia 3. DVT Prophylaxis: Eliquis 4. Advanced Directives: Sons are HCP. Full code 5. GERD: protonix 12/18/18 17:14
[2018-12-19] MEDS: Acetaminophen TAB* 325 MG PO PRN (05:14)
[2018-12-19] MEDS: Vitamin THERAPEUTIC TAB PO SCH (07:37)
[2018-12-19] MEDS: Apixaban* 2.5 MG TAB PO SCH ×2 (07:37→21:13)
[2018-12-19] MEDS: Metoprolol Succinate XL TAB* 100 MG PO SCH (07:37)
[2018-12-19] MEDS: Docusate CAP* 100 MG PO SCH ×2 (07:37→21:13)
[2018-12-19] MEDS: Sertraline* 100 MG TAB PO SCH (07:37)
[2018-12-19] MEDS: amLODIPine TAB* 5 MG PO SCH (07:37)
[2018-12-19] MEDS: Pantoprazole TAB * 40 MG TAB PO SCH (07:37)
--- NOTE | 2018-12-19 17:46 | PN ---
Progress Note Date of Service: 12/19/18 Note: ANNA MCKEON was visited. Therapy notes read and reviewed. His verbal output and judgement continue to fluctuate. Sons not sure he will make it home or he might need 24 hour care. Current Medications: Active Medications Generic Name Dose Route Start Last Admin Trade Name Freq PRN Reason Stop Dose Admin Acetaminophen 650 mg 12/12/18 11:43 12/19/18 05:14 Tylenol Tab* PO 650 mg Q6H PRN Administration MILD PAIN or TEMP > 100.4 Amlodipine Besylate 10 mg 12/13/18 09:00 12/19/18 07:37 Norvasc Tab* PO 10 mg DAILY ALYSSA Administration Apixaban 2.5 mg 12/12/18 21:00 12/19/18 07:37 Eliquis* PO 2.5 mg BID ALYSSA Administration Atorvastatin Calcium 40 mg 12/12/18 17:00 12/18/18 16:21 Lipitor* PO 40 mg 1700 ALYSSA Administration Bisacodyl 10 mg 12/12/18 11:43 Dulcolax Supp* [place] DAILY PRN CONSTIPATION Docusate Sodium 100 mg 12/12/18 21:00 12/19/18 07:37 Colace Cap* PO 100 mg BID ALYSSA Administration Magnesium Hydroxide 30 ml 12/12/18 11:43 12/12/18 20:24 Milk Of Magnesia Liq* PO 30 ml Q6H PRN Administration CONSTIPATION Metoprolol Succinate 100 mg 12/13/18 09:00 12/19/18 07:37 Toprol Xl Tab* PO 100 mg DAILY ALYSSA Administration Multivitamins 1 tab 12/13/18 09:00 12/19/18 07:37 Theragran Tab* PO 1 tab DAILY ALYSSA Administration Oxycodone/Acetaminophen 1 tab 12/12/18 11:55 12/18/18 19:36 Percocet 5/325 Tab* PO 1 tab Q4H PRN Administration PAIN - MODERATE Pantoprazole Sodium 40 mg 12/13/18 09:00 12/19/18 07:37 Protonix Tab* PO 40 mg DAILY ALYSSA Administration Senna 2 tab 12/12/18 11:43 12/17/18 21:13 Senokot 8.6 Mg Tab* PO 2 tab BEDTIME PRN Administration CONSTIPATION Sertraline HCl 100 mg 12/13/18 09:00 12/19/18 07:37 Zoloft* PO 100 mg DAILY ALYSSA Administration Vital Signs: Vital Signs Temp Pulse Resp BP Pulse Ox 97.9 F 75 18 154/78 94 12/19/18 15:21 12/19/18 15:21 12/19/18 15:21 12/19/18 15:21 12/19/18 15:55 Lab Results: Laboratory Results - last 24 hr 12/18/18 16:06 POC Glucose (mg/dL) 148 H Exam: GENERAL:In no distress LUNGS: Clear bilaterally HEART: reg rhythm ABDOMEN: Soft, +BS EXTREMITIES: Left knee wound C/D/I NEUROLOGIC: alert and oriented. Aphasia. Motor strength 5/5 except LLE due to pain Assessment/Plan: 1. Left total knee arthroplasty: PT/OT. WBAT LLE. 2. Cognitive decline: working with [employer] for expressive aphasia 3. DVT Prophylaxis: Eliquis 4. Advanced Directives: Sons are HCP. Full code 5. GERD: protonix 12/19/18 17:47
[2018-12-19] MEDS: Atorvastatin* 40 MG TAB PO SCH (18:13)
[2018-12-20] MEDS: oxyCODONE/Acetamin 5/325 MG* TAB PO PRN (00:36)
[2018-12-20] MEDS: Apixaban* 2.5 MG TAB PO SCH ×2 (09:37→19:58)
[2018-12-20] MEDS: amLODIPine TAB* 5 MG PO SCH (09:37)
[2018-12-20] MEDS: Sertraline* 100 MG TAB PO SCH (09:38)
[2018-12-20] MEDS: Docusate CAP* 100 MG PO SCH ×2 (09:38→19:58)
[2018-12-20] MEDS: Metoprolol Succinate XL TAB* 100 MG PO SCH (09:38)
[2018-12-20] MEDS: Vitamin THERAPEUTIC TAB PO SCH (09:38)
[2018-12-20] MEDS: Pantoprazole TAB * 40 MG TAB PO SCH (09:38)
--- NOTE | 2018-12-20 12:38 | PMRUTEAM ---
PMRU: Team Meeting Current Status: Physical Therapy: Current Status Current Rolling Status Independent Current Supine <-> Sit Status Supervision/Touching Current Sit <-> Stand Status Supervision/Touching Current Bed <-> Chair Status Supervision/Touching Transfer/Bed Mobility Rolling Walker Recommended Devices Transfer Mobility Comment Supervision with RW, cues for safety Current Picking Up Object Supervision/Touching Status Current Car Transfer Status Not attempted due to Current Ambulation Assistance Supervision/Touching Status Ambulation Assistive Device Rolling Walker Ambulation Conditions Two or More Turns,Uneven Surfaces Current Ambulation Distance 2x150' Ambulation Comment Supervision with RW, cues for safety and navigation Current Wheelchair Propulsion Not Applicable Ability Status Current Stair Climbing Status Supervision/Touching Stair Climbing Assistive Left Railing,Right Railing Devices Number of Stairs Climbed 12 Current Curb Assistance Status Supervision/Touching Curb Assistive Devices Rolling Walker Objective Comments L knee extension: -13 degrees L knee flexion: 94 degrees Occupational Therapy: Current Status Current Upper Body Dressing Setup or Clean-up Assist Status Current Lower Body Dressing Supervision/Touching Status Current Footwear Status Partial/Moderate Current Bathing Status Supervision/Touching Current Grooming Status Supervision/Touching Current Toileting Status Supervision/Touching Current Toilet Transfer Status Supervision/Touching Current Eating Status Independent Nursing: Current Status Skin Deviations [Mid Back] Incision Skin Deviations [Left Upper Bruise Leg] Skin Deviations [Left Foot] Bruise Skin Deviations [Left Buttocks Other ] Skin Deviations [Left Knee] Incision Skin Deviation Description [ healed Mid Back] Skin Deviation Description [ healing Left Upper Leg] Skin Deviation Description [ redness lotion in place Left Buttocks] Skin Deviation Description [ healing Left Knee] Bladder Current Status Incontinent at times - urgency noted Bowel Current Status Continent - bowel meds given Last BM - 12/18/2018 Nutrition Current Status Eats 100% of most meals Medication Current Status Reinforcement with medications Rec Therapy: Current Status Summary of Assessment and Recreation Therapy assessment completed and pt. is Clinical Impression aware of services. Pt. presents as somewhat confused during leisure sessions. Pt. has declined interest in recreational activities or materials but has participated in pet therapy. Treatment Goals Pt. will engage in leisure activities while on the unit. Treatment Plan Provide recreation therapy services and encourage involvement. Nutrition: Current Status Monitoring new adm to PMRU s/p left TKA. Hx glucose intolerance, so provided a consistent carb diet. BG controlled 127-150 thus far; A1c n/a. PO intake was fair post-op, but perhaps improving ( ate 100% this a.m.). Skin is intact. No immediate nutrition concerns. Full nutrition assessement planned 12/19 per NDS protocol. Speech: Current Status Assessment Patient is progressing as expected Goals: Physical Therapy: Goals Goals to Be Accomplished in ( 10-14 Days) Goal: Rolling Assistance Independent Goal Supine <-> Sit Status Independent Goal Sit <-> Stand Status Independent Goal Bed <-> Chair Status Independent Transfer/Bed Mobility Rolling Walker Recommended Devices Goal: Picking Up Object Independent Goal: Car Transfer Status Setup or Clean-up Assist Goal: Ambulation Assistance Independent Ambulation Assistive Devices Rolling Walker Ambulation Distance (ft) 150 Goal: Wheelchair Propulsion Not Applicable Ability Goal: Stairs Assistance Independent Stairs Recommended Devices One Rail,Two Rails Number of Stairs 12 Goal: Curb Assistance Independent Goal: Home Exercise Program Independent Assistance Occupational Therapy: Goals Goals to be Completed in (Days 10-14 ) Goal Upper Body Dressing Supervision/Touching Routine Goal Lower Body Dressing Supervision/Touching Routine Goal Footwear Status Supervision/Touching Goal Bathing Routine (OT) Supervision/Touching Goal Grooming Routine Supervision/Touching Goal Toilet Hygiene and Supervision/Touching Clothing Management Routine Goal Toilet Transfer Routine Supervision/Touching Goal Functional Transfers for Supervision/Touching ADL Goal Feeding Routine Setup or Clean-up Assist Nutrition: Goals Intervention Goals 1. adequate intake to support hydration and lean body mass without add'l wt gain 2. glycemic control within inpatient parameters; no s/sx hypo-hyperglycemia 3. maintain serum electrolytes WNL 4. regulation of bowel pattern; no c/o constipation (or diarrhea) Speech: Goals Speech Goal 1 Language Expression Goal 1 Comments Language Expression Goals: Long-Term Goal: Pt will use conversational repair strategies to cooperatively find words in structured conversation, 100% accuracy, given extra time, Independently. Status: Progressing as expected Short-Term Goal: Pt will use conversational repair strategies to cooperatively find words in structured language activities, 75% accuracy, given skilled instruction, Moderate cueing, and extra time. Status: Progressing as expected CORRECTIONAL SUBSTANCE ABUSE COUNSELOR provided initial skilled instruction in Attentive Reading and Constrained Summarization ( ARCS) method of improving expressive language and memory function. CORRECTIONAL SUBSTANCE ABUSE COUNSELOR provided a short, 4 sentence news article to read, and demonstration of selecting and circling keywords such as names and numbers. Given maximal cueing, patient accurately summarized by expanding the headline by ading details words from each sentence. Patient required maximal cueing to find words to speak such as "rescue."After summarizing with names, patient c/o difficulty "putting it all together," but then did summarize the point in his own words: Buster Larson rescued the dog Segundo, and later Segundo rescued Buster" Speech Goal 2 Memory Speech Goal 2 Comments Memory Goals: Long-Term Goal: Pt will use compensatory strategies to encode and retrieve 5/5 new items after delay of 20 minutes, Independently, for independence in mobility safety, ADLs and community access. Status: Progressing as expected Short-term Goal: Pt will use compensatory strategies to encode and retrieve 4/4 new items after delay of 4 minutes, given skilled instruction, Moderate cueing, and extra time. Status: Progressing as expected CORRECTIONAL SUBSTANCE ABUSE COUNSELOR and aide provided supervision/contact guard to transfer from bed ot chair, and CORRECTIONAL SUBSTANCE ABUSE COUNSELOR cued patient to verbalize safety steps/ CORRECTIONAL SUBSTANCE ABUSE COUNSELOR then demonstrated and instructed patient to command CORRECTIONAL SUBSTANCE ABUSE COUNSELOR to properly perform 3 steps to safely stand to walker, and 3 steps to safely sit from walker. Patient verbalized 5/6 steps accurately with circumlocutions. Nursing: Goals Bladder Goal Independent with toileting Bowel Goal Independent with toileting Nutrition Goal Eats 100% of all meals Medication Goal Reinforcement with medications Care Plan: Care Plan ADL's - Improve/Maintain Start: 12/12/18 14:35 Freq: DAILY@0700,1900 Status: Active Target: 12/13/18 Protocol: Activity Type Activity Date Activity User E-Sign Co-Sign Detail Recorded Client Recorded Date Recorded By Document 12/19/18 10:34 [id number] 12/19/18 10:34 [id number] 12/19/18 10:34 PMRU Outcome: ADL's/ADL Transfers Orders/Interventions Occupational Therapy Evaluation & Treatment Communication Tool in Patient Room Device Yes Address Deficits Secondary To: L TKA Patient to receive OT 5x/wk for 60-120 Therex min/day Self Care Management Group Therapy UE/LE ADL's with Assist Yes: S ADL Transfers with Assist Yes: S Toileting: Transfers,Clothing Management Yes: S ,Hygeine w/Assist Light Kitchen/Laundry w/Assist No Other Outcome/Goals Pt tolertates therapy well this date. He does continue to require verbal cues for safety and sequencing throughout tx sesion. Progression Toward Outcome/Goals Progressing Communication-Improve/Maintain Start: 12/12/18 12:54 Freq: DAILY@0700,1900 Status: Active Target: 12/20/18 Protocol: Activity Type Activity Date Activity User E-Sign Co-Sign Detail Recorded Client Recorded Date Recorded By Document 12/19/18 17:55 [id number] 12/19/18 19:11 [id number] 12/19/18 17:55 PMRU Outcome: Communication/Cognitive Status Current Communication Outcome/Goals Other Other Communication Outcomes/Goals Language Expression Goals: Long-Term Goal: Pt will use conversational repair strategies to cooperatively find words in structured conversation, 100% accuracy, given extra time, Independently. Status: Progressing as expected Short-Term Goal : Pt will use conversational repair strategies to cooperatively find words in structured language activities, 75% accuracy, given skilled instruction, Moderate cueing , and extra time. Status: Progressing as expected Memory Goals: Long-Term Goal: Pt will use compensatory strategies to encode and retrieve 5/5 new items after delay of 20 minutes, Independently, for independence in mobility safety, ADLs and community access. Status: Progressing as expected Short-term Goal : Pt will use compensatory strategies to encode and retrieve 4/4 new items after delay of 4 minutes, given skilled instruction, Maximal cueing, and extra time . Status: Progressing as expected Progression Toward Outcomes/Goals Progressing Outcome/Goals Met Other Outcome/Goals Met Comment CORRECTIONAL SUBSTANCE ABUSE COUNSELOR provided printed and verbal skilled instruction in Attentive Reading and Constrained Summarization ( ARCS) method of improving expressive language and memory function . CORRECTIONAL SUBSTANCE ABUSE COUNSELOR provided additional explanation of rationale for repeating the author's vocabulary and facts and not adding personal opinion, conjecture or confabulation. Language Expression Goals: Short-Term Goal : Pt will use conversational repair strategies to cooperatively find words in structured language activities, 75% accuracy, given skilled instruction, Moderate cueing , and extra time. Status: Progressing as expected CORRECTIONAL SUBSTANCE ABUSE COUNSELOR provided initial skilled instruction in Attentive Reading and Constrained Summarization ( ARCS) method of improving expressive language and memory function . CORRECTIONAL SUBSTANCE ABUSE COUNSELOR provided a short, 4 sentence news article to read , and demonstration of selecting and circling keywords such as names and numbers. Given maximal cueing, patient accurately summarized by expanding the headline by ading details words from each sentence. Patient required maximal cueing to find words to speak such as "rescue." After summarizing with names, patient c/o difficulty " putting it all together," but then did summarize the point in his own words: Buster Larson rescued the dog Segundo, and later Segundo rescued Buster" Memory Goals: Short-term Goal : Pt will use compensatory strategies to encode and retrieve 4/4 new items after delay of 4 minutes, given skilled instruction, Moderate cueing , and extra time. Status: Progressing as expected CORRECTIONAL SUBSTANCE ABUSE COUNSELOR and aide provided supervision/ contact guard to transfer from bed ot chair, and CORRECTIONAL SUBSTANCE ABUSE COUNSELOR cued patient to verbalize safety steps/ CORRECTIONAL SUBSTANCE ABUSE COUNSELOR then demonstrated and instructed patient to command CORRECTIONAL SUBSTANCE ABUSE COUNSELOR to properly perform 3 steps to safely stand to walker , and 3 steps to safely sit from walker. Patient verbalized 5/6 steps accurately with circumlocutions . Discharge Planning - Improve/Maintain Start: 12/12/18 12:54 Freq: DAILY@0700,1900 Status: Active Target: 12/20/18 Protocol: Activity Type Activity Date Activity User E-Sign Co-Sign Detail Recorded Client Recorded Date Recorded By Document 12/20/18 07:00 [id number] 12/20/18 09:52 [id number] 12/20/18 07:00 PMRU Outcome: Discharge Planning Update Patient Family No Current Discharge Planning Outcome/Goals Demonstrates Understanding of Discharge Plan Homecare Referral - See Comment Progression Toward Outcome/Goals Progressing Metabolic Status- Improve/Maintain Start: 12/12/18 12:54 Freq: DAILY@0700,1900 Status: Active Target: 12/20/18 Protocol: Activity Type Activity Date Activity User E-Sign Co-Sign Detail Recorded Client Recorded Date Recorded By Document 12/20/18 07:00 [id number] 12/20/18 09:52 [id number] 12/20/18 07:00 PMRU Outcome: Metabolic Status Have Fingersticks Been Ordered No Current Metabolic Status Outcome/Goals Maintain/ Improve Metabolic Status Demonstrate Knowledge of Prevention/ Treatment of Metabolic Imbalances Progression Toward Outcome/Goals Goals Met Outcome/Goals Met Maintain/ Improve Metabolic Status Demonstrate Knowledge of Prevention/ Treatment of Metabolic Imbalances Outcome/Goals Met Comment FS dc'd Mobility- Improve/Maintain Start: 12/12/18 12:54 Freq: DAILY@0700,1900 Status: Active Target: 12/22/18 Protocol: Activity Type Activity Date Activity User E-Sign Co-Sign Detail Recorded Client Recorded Date Recorded By Document 12/17/18 13:25 [id number] 12/17/18 13:25 [id number] 12/17/18 13:25 PMRU Outcome: Mobility Physical Therapy Evaluation and Yes Treatment Activity OOB with Assistance Yes WBAT Yes NWB No TTWB No Device Yes Assistance Yes Patient to be seen 5x/wk for 60-120 min/ Therex day for: Mobility Training Gait Training Balance Current Mobility Outcome/Goals Improve Mobility Status Demonstrates Proper Use of Assistive Devices Progression Toward Outcome/Goals Progressing Outcome/Goals Met Free from Complications of Immobility Bed Mobility Yes: Independent Transfers Yes: Independent with RW Gait x ft Yes: 150' independent with RW W/C Mobility x ft No Up/Down Stairs Yes: 12 with 2 rails, independent With HEP Yes: Independent Neurological- Improve/Maintain Start: 12/12/18 12:54 Freq: DAILY@699,1900 Status: Active Target: 12/20/18 Protocol: Activity Type Activity Date Activity User E-Sign Co-Sign Detail Recorded Client Recorded Date Recorded By Document 12/20/18 07:00 [id number] 12/20/18 09:52 [id number] 12/20/18 07:00 PMRU Outcome: Neurological Weakness/Aphasia Weakness Weakness/Aphasia Comment generalized Current Neurological Outcome/Goals Maintain/ Achieve Baseline Neurological Status Improve Neurological Status Prevent Avoidable Neurological Decline Demonstrate Knowledge of Prevention/Tx of Neuro Disorders/ Complication Maintain/ Improve Strength/ROM Progression Toward Outcome/Goals Progressing Pain/Comfort- Improve/Maintain Start: 12/12/18 12:54 Freq: DAILY@699,0 Status: Active Target: 12/20/18 Protocol: Activity Type Activity Date Activity User E-Sign Co-Sign Detail Recorded Client Recorded Date Recorded By Document 12/20/18 07:00 [id number] 12/20/18 09:52 [id number] 12/20/18 07:00 PMRU Outcome: Pain/Comfort Current Pain/Comfort Outcome/Goals Demonstrates Knowledge and Use of Available Comfort Measures Achieves Acceptable Comfort/Pain Level as Determined by Patient/Condit Maintain Comfort Level Allowing Patient to Fully Participate in Rehab Progression Toward Outcome/Goals Progressing Rec Therapy- Improve/Maintain Start: 12/12/18 12:54 Freq: DAILY@0700,1900 Status: Active Target: 12/23/18 Protocol: Activity Type Activity Date Activity User E-Sign Co-Sign Detail Recorded Client Recorded Date Recorded By Document 12/19/18 15:56 [id number] 12/19/18 15:57 [id number] 12/19/18 15:56 PMRU Outcome: Recreation Therapy Current Rec Ther Outcome/Goals Meet with Patient Regularly for Support Encourage Leisure Involvement Progression Toward Outcome/Goals Progressing Lack of Progression Comment pt. has been engaged in leisure visits and pet therapy but declining formal recreation groups or activities. pt . does present as confused at times during our interactions. Outcome/Goals Met Meet with Patient Regularly for Support Encourage Leisure Involvement Respiratory - Improve/Maintain Start: 12/12/18 12:54 Freq: DAILY@ Status: Active Target: 12/20/18 Protocol: Activity Type Activity Date Activity User E-Sign Co-Sign Detail Recorded Client Recorded Date Recorded By Document 12/20/18 07:00 [id number] 12/20/18 09:52 [id number] 12/20/18 07:00 PMRU Outcome: Respiratory Does Patient Have a Trach No Current Respiratory Outcome/Goals Maintain/ Improve Baseline Respiratory Status Maintain/ Improve Activity Tolerance Prevent Pneumonia/ Atelectasis Progression Toward Outcome/Goals Progressing Safety- Improve/Maintain Start: 12/12/18 11:02 Freq: DAILY@ Status: Active Target: 12/20/18 Protocol: Activity Type Activity Date Activity User E-Sign Co-Sign Detail Recorded Client Recorded Date Recorded By Document 12/20/18 07:00 [id number] 12/20/18 09:52 [id number] 12/20/18 07:00 PMRU Outcome: Safety Current Safety Outcome/Goals Remain Free of Injury or Harm Cooperates with Safety Measures for Least Restrictive Environment Prevent Falls/ Injury Progression Toward Outcome/Goals Progressing - Interdisciplinary Staff Present Area Attendant/Social Work Staff Present: Anju Gtz LMSW Nursing Staff Present: Edu Pino, CAMILA OT Staff Present: Amber Miller PT Staff Present: Michelle Vasquez Rec Therapy Staff Present: Sandi Joshua CORRECTIONAL SUBSTANCE ABUSE COUNSELOR Staff Present: Kai Blake Medicine Note: Length of Stay: 3 days Anticipated Discharge Destination: SNF Tentative Discharge Date: Dec 23, 2018 Discharged to: SNF
[2018-12-20] MEDS: Atorvastatin* 40 MG TAB PO SCH (17:54)
--- NOTE | 2018-12-20 17:56 | PN ---
Progress Note Date of Service: 12/20/18 Note: ANNA MCKEON was visited. Therapy notes read and reviewed. He was discussed in interdisciplinary team rounds. As far as mobility, he is progressing nicely, but cognitively it is taking longer. Family considering [facility] Current Medications: Active Medications Generic Name Dose Route Start Last Admin Trade Name Freq PRN Reason Stop Dose Admin Acetaminophen 650 mg 12/12/18 11:43 12/19/18 05:14 Tylenol Tab* PO 650 mg Q6H PRN Administration MILD PAIN or TEMP > 100.4 Amlodipine Besylate 10 mg 12/13/18 09:00 12/20/18 09:37 Norvasc Tab* PO 10 mg DAILY ALYSSA Administration Apixaban 2.5 mg 12/12/18 21:00 12/20/18 09:37 Eliquis* PO 2.5 mg BID ALYSSA Administration Atorvastatin Calcium 40 mg 12/12/18 17:00 12/19/18 18:13 Lipitor* PO 40 mg 1700 ALYSSA Administration Bisacodyl 10 mg 12/12/18 11:43 Dulcolax Supp* [place] DAILY PRN CONSTIPATION Docusate Sodium 100 mg 12/12/18 21:00 12/20/18 09:38 Colace Cap* PO 100 mg BID ALYSSA Administration Magnesium Hydroxide 30 ml 12/12/18 11:43 12/12/18 20:24 Milk Of Magnesia Liq* PO 30 ml Q6H PRN Administration CONSTIPATION Metoprolol Succinate 100 mg 12/13/18 09:00 12/20/18 09:38 Toprol Xl Tab* PO 100 mg DAILY ALYSSA Administration Multivitamins 1 tab 12/13/18 09:00 12/20/18 09:38 Theragran Tab* PO 1 tab DAILY ALYSSA Administration Oxycodone/Acetaminophen 1 tab 12/12/18 11:55 12/20/18 00:36 Percocet 5/325 Tab* PO 1 tab Q4H PRN Administration PAIN - MODERATE Pantoprazole Sodium 40 mg 12/13/18 09:00 12/20/18 09:38 Protonix Tab* PO 40 mg DAILY ALYSSA Administration Senna 2 tab 12/12/18 11:43 12/17/18 21:13 Senokot 8.6 Mg Tab* PO 2 tab BEDTIME PRN Administration CONSTIPATION Sertraline HCl 100 mg 12/13/18 09:00 12/20/18 09:38 Zoloft* PO 100 mg DAILY ALYSSA Administration Vital Signs: Vital Signs Temp Pulse Resp BP Pulse Ox 97.2 F 71 15 163/68 94 12/20/18 17:44 12/20/18 17:44 12/20/18 17:44 12/20/18 17:44 12/20/18 17:44 Lab Results: Laboratory Results - last 24 hr 12/20/18 07:28 POC Glucose (mg/dL) 138 H Exam: GENERAL:In no distress LUNGS: Clear bilaterally HEART: reg rhythm ABDOMEN: Soft, +BS EXTREMITIES: Left knee wound C/D/I NEUROLOGIC: alert and oriented. Aphasia. Motor strength 5/5 except LLE due to pain Assessment/Plan: 1. Left total knee arthroplasty: PT/OT. WBAT LLE. 2. Cognitive decline: working with SIEB[employer] SOLUTION ARCHITECT for expressive aphasia 3. DVT Prophylaxis: Eliquis 4. Advanced Directives: Sons are HCP. Full code 5. GERD: protonix 12/20/18 17:56
[2018-12-21] MEDS: oxyCODONE/Acetamin 5/325 MG* TAB PO PRN ×2 (00:10→22:14)
[2018-12-21 04:41] LABS: ABS Eosinophils 0.4 10^3/ul (0-0.6); ABS Lymphocytes 1.4 10^3/ul (1.0-4.8); ABS Monocytes 0.6 10^3/ul (0-0.8); Eosinophil % 4.2 %; Hematocrit 38 % (42-52); Hemoglobin 12.4 g/dL (14.0-18.0); Lymphocyte % 14.8 %; Mean Corpuscular HGB Conc 33 g/dL (31-36); Mean Corpuscular Hemoglobin 26 pg (27-31); Mean Corpuscular Volume 79 fL (80-94); Mean Platelet Volume 6.6 fL (7.4-10.4); Nucleated Red Blood Cells % 0.1; Platelet Count 339 10^3/uL (150-450); Red Blood Count 4.76 10^6 /uL (4.18-5.48); Red Cell Distribution Width 16 % (10-15); White Blood Count 9.4 10^3/uL (3.5-10.8)
[2018-12-21 04:54] LABS: Albumin 3.3 g/dL (3.2-5.2); Albumin/Globulin Ratio 1.1 (1-3); BUN/Creatinine Ratio 24.1 (8-20); EGFR African American 77.1 (>60); EGFR Non-African American 63.7 (>60); Potassium 3.7 mmol/L (3.5-5.0); Total Protein 6.3 g/dL (6.4-8.9)
[2018-12-21] MEDS: amLODIPine TAB* 5 MG PO SCH (09:07)
[2018-12-21] MEDS: Sertraline* 100 MG TAB PO SCH (09:08)
[2018-12-21] MEDS: Pantoprazole TAB * 40 MG TAB PO SCH (09:08)
[2018-12-21] MEDS: Acetaminophen TAB* 325 MG PO PRN ×2 (09:08→15:11)
[2018-12-21] MEDS: Vitamin THERAPEUTIC TAB PO SCH (09:08)
[2018-12-21] MEDS: Docusate CAP* 100 MG PO SCH ×2 (09:08→19:45)
[2018-12-21] MEDS: Apixaban* 2.5 MG TAB PO SCH ×2 (09:08→19:45)
[2018-12-21] MEDS: Metoprolol Succinate XL TAB* 100 MG PO SCH (09:08)
[2018-12-21] MEDS: Atorvastatin* 40 MG TAB PO SCH (17:08)
[2018-12-21] MEDS: Senna TAB 8.6 mg* TAB PO PRN (19:45)
--- NOTE | 2018-12-21 21:28 | PN ---
Progress Note Date of Service: 12/21/18 Note: ANNA MCKEON was visited. Therapy notes read and reviewed. He is doing fairly well with his knee and mobility, but he needs work cognitively. Family waiting to hear about [facility] Current Medications: Active Medications Generic Name Dose Route Start Last Admin Trade Name Freq PRN Reason Stop Dose Admin Acetaminophen 650 mg 12/12/18 11:43 12/21/18 15:11 Tylenol Tab* PO 650 mg Q6H PRN Administration MILD PAIN or TEMP > 100.4 Amlodipine Besylate 10 mg 12/13/18 09:00 12/21/18 09:07 Norvasc Tab* PO 10 mg DAILY ALYSSA Administration Apixaban 2.5 mg 12/12/18 21:00 12/21/18 19:45 Eliquis* PO 2.5 mg BID ALYSSA Administration Atorvastatin Calcium 40 mg 12/12/18 17:00 12/21/18 17:08 Lipitor* PO 40 mg 1700 ALYSSA Administration Bisacodyl 10 mg 12/12/18 11:43 Dulcolax Supp* [place] DAILY PRN CONSTIPATION Docusate Sodium 100 mg 12/12/18 21:00 12/21/18 19:45 Colace Cap* PO 100 mg BID ALYSSA Administration Magnesium Hydroxide 30 ml 12/12/18 11:43 12/12/18 20:24 Milk Of Magnesia Liq* PO 30 ml Q6H PRN Administration CONSTIPATION Metoprolol Succinate 100 mg 12/13/18 09:00 12/21/18 09:08 Toprol Xl Tab* PO 100 mg DAILY ALYSSA Administration Multivitamins 1 tab 12/13/18 09:00 12/21/18 09:08 Theragran Tab* PO 1 tab DAILY ALYSSA Administration Oxycodone/Acetaminophen 1 tab 12/12/18 11:55 12/21/18 00:10 Percocet 5/325 Tab* PO 1 tab Q4H PRN Administration PAIN - MODERATE Pantoprazole Sodium 40 mg 12/13/18 09:00 12/21/18 09:08 Protonix Tab* PO 40 mg DAILY ALYSSA Administration Senna 2 tab 12/12/18 11:43 12/21/18 19:45 Senokot 8.6 Mg Tab* PO 2 tab BEDTIME PRN Administration CONSTIPATION Sertraline HCl 100 mg 12/13/18 09:00 12/21/18 09:08 Zoloft* PO 100 mg DAILY ALYSSA Administration Vital Signs: Vital Signs Temp Pulse Resp BP Pulse Ox 97.8 F 72 20 141/82 93 12/21/18 16:33 12/21/18 16:33 12/21/18 16:33 12/21/18 16:33 12/21/18 16:33 Lab Results: Laboratory Results - last 24 hr 12/21/18 12/21/18 04:18 04:18 WBC 9.4 RBC 4.76 Hgb 12.4 L Hct 38 L MCV 79 L MCH 26 L MCHC 33 RDW 16 H Plt Count 339 MPV 6.6 L Neut % (Auto) 74.4 Lymph % (Auto) 14.8 Ware % (Auto) 6.3 Eos % (Auto) 4.2 Baso % (Auto) 0.3 Absolute Neuts (auto) 7.0 Absolute Lymphs (auto) 1.4 Absolute Monos (auto) 0.6 Absolute Eos (auto) 0.4 Absolute Basos (auto) 0.0 Absolute Nucleated RBC 0.0 Nucleated RBC % 0.1 Sodium 138 Potassium 3.7 Chloride 106 Carbon Dioxide 25 Anion Gap 7 BUN 27 H Creatinine 1.12 Est GFR ( Amer) 77.1 Est GFR (Non-Af Amer) 63.7 BUN/Creatinine Ratio 24.1 H Glucose 120 H Calcium 9.0 Total Bilirubin 1.00 AST 38 ALT 47 Alkaline Phosphatase 113 H Total Protein 6.3 L Albumin 3.3 Globulin 3.0 Albumin/Globulin Ratio 1.1 Exam: GENERAL:In no distress LUNGS: Clear bilaterally HEART: reg rhythm ABDOMEN: Soft, +BS EXTREMITIES: Left knee wound C/D/I NEUROLOGIC: alert and oriented. Aphasia. Motor strength 5/5 except LLE due to pain Assessment/Plan: 1. Left total knee arthroplasty: PT/OT. WBAT LLE. 2. Cognitive decline: working with ACUTE CARE PHYSICIAN for expressive aphasia 3. DVT Prophylaxis: Eliquis 4. Advanced Directives: Sons are HCP. Full code 5. GERD: protonix 12/21/18 21:29
[2018-12-22] MEDS: Docusate CAP* 100 MG PO SCH ×2 (09:02→20:07)
[2018-12-22] MEDS: Apixaban* 2.5 MG TAB PO SCH ×2 (09:02→20:07)
[2018-12-22] MEDS: amLODIPine TAB* 5 MG PO SCH (09:02)
[2018-12-22] MEDS: Sertraline* 100 MG TAB PO SCH (09:03)
[2018-12-22] MEDS: Metoprolol Succinate XL TAB* 100 MG PO SCH (09:03)
[2018-12-22] MEDS: Pantoprazole TAB * 40 MG TAB PO SCH (09:03)
[2018-12-22] MEDS: Vitamin THERAPEUTIC TAB PO SCH (09:04)
[2018-12-22] MEDS: Acetaminophen TAB* 325 MG PO PRN (15:07)
[2018-12-22] MEDS: Atorvastatin* 40 MG TAB PO SCH (17:21)
--- NOTE | 2018-12-22 18:43 | PN ---
Progress Note Date of Service: 12/22/18 Note: ANNA MCKEON was visited. Therapy notes read and reviewed. He is moving okay and sleeping better Current Medications: Active Medications Generic Name Dose Route Start Last Admin Trade Name Freq PRN Reason Stop Dose Admin Acetaminophen 650 mg 12/12/18 11:43 12/22/18 15:07 Tylenol Tab* PO 650 mg Q6H PRN Administration MILD PAIN or TEMP > 100.4 Amlodipine Besylate 10 mg 12/13/18 09:00 12/22/18 09:02 Norvasc Tab* PO 10 mg DAILY ALYSSA Administration Apixaban 2.5 mg 12/12/18 21:00 12/22/18 09:02 Eliquis* PO 2.5 mg BID ALYSSA Administration Atorvastatin Calcium 40 mg 12/12/18 17:00 12/22/18 17:21 Lipitor* PO 40 mg 1700 ALYSSA Administration Bisacodyl 10 mg 12/12/18 11:43 Dulcolax Supp* [place] DAILY PRN CONSTIPATION Docusate Sodium 100 mg 12/12/18 21:00 12/22/18 09:02 Colace Cap* PO 100 mg BID ALYSSA Administration Magnesium Hydroxide 30 ml 12/12/18 11:43 12/12/18 20:24 Milk Of Magnesia Liq* PO 30 ml Q6H PRN Administration CONSTIPATION Metoprolol Succinate 100 mg 12/13/18 09:00 12/22/18 09:03 Toprol Xl Tab* PO 100 mg DAILY ALYSSA Administration Multivitamins 1 tab 12/13/18 09:00 12/22/18 09:04 Theragran Tab* PO 1 tab DAILY ALYSSA Administration Oxycodone/Acetaminophen 1 tab 12/12/18 11:55 12/21/18 22:14 Percocet 5/325 Tab* PO 1 tab Q4H PRN Administration PAIN - MODERATE Pantoprazole Sodium 40 mg 12/13/18 09:00 12/22/18 09:03 Protonix Tab* PO 40 mg DAILY ALYSSA Administration Senna 2 tab 12/12/18 11:43 12/21/18 19:45 Senokot 8.6 Mg Tab* PO 2 tab BEDTIME PRN Administration CONSTIPATION Sertraline HCl 100 mg 12/13/18 09:00 12/22/18 09:03 Zoloft* PO 100 mg DAILY ALYSSA Administration Vital Signs: Vital Signs Temp Pulse Resp BP Pulse Ox 97.5 F 70 16 160/85 95 12/22/18 16:14 12/22/18 16:14 12/22/18 16:14 12/22/18 16:14 12/22/18 16:14 Exam: GENERAL:In no distress LUNGS: Clear bilaterally HEART: reg rhythm ABDOMEN: Soft, +BS EXTREMITIES: Left knee wound C/D/I NEUROLOGIC: alert and oriented. Aphasia. Motor strength 5/5 except LLE due to pain Assessment/Plan: 1. Left total knee arthroplasty: PT/OT. WBAT LLE. 2. Cognitive decline: working with GEAR ROLLER for expressive aphasia 3. DVT Prophylaxis: Eliquis 4. Advanced Directives: Sons are HCP. Full code 5. GERD: protonix 6. Disposition: Will need answer from sons: either home with 24 hour care or [facility] 12/22/18 18:43
[2018-12-22] MEDS: oxyCODONE/Acetamin 5/325 MG* TAB PO PRN (21:49)
[2018-12-23] MEDS: Acetaminophen TAB* 325 MG PO PRN (02:52)
[2018-12-23] MEDS: Vitamin THERAPEUTIC TAB PO SCH (09:05)
[2018-12-23] MEDS: amLODIPine TAB* 5 MG PO SCH (09:05)
[2018-12-23] MEDS: Apixaban* 2.5 MG TAB PO SCH ×2 (09:05→20:08)
[2018-12-23] MEDS: Sertraline* 100 MG TAB PO SCH (09:05)
[2018-12-23] MEDS: Metoprolol Succinate XL TAB* 100 MG PO SCH (09:05)
[2018-12-23] MEDS: Pantoprazole TAB * 40 MG TAB PO SCH (09:05)
[2018-12-23] MEDS: Docusate CAP* 100 MG PO SCH ×2 (09:06→20:08)
--- NOTE | 2018-12-23 09:46 | PN ---
Progress Note Date of Service: 12/23/18 Note: ANNA MCKEON was visited. Nursing and therapy notes read and reviewed. Some left knee pain. No chest pain, shortness of breath or abdominal pain. Current Medications: Active Medications Generic Name Dose Route Start Last Admin Trade Name Freq PRN Reason Stop Dose Admin Acetaminophen 650 mg 12/12/18 11:43 12/23/18 02:52 Tylenol Tab* PO 650 mg Q6H PRN Administration MILD PAIN or TEMP > 100.4 Amlodipine Besylate 10 mg 12/13/18 09:00 12/23/18 09:05 Norvasc Tab* PO 10 mg DAILY ALYSSA Administration Apixaban 2.5 mg 12/12/18 21:00 12/23/18 09:05 Eliquis* PO 2.5 mg BID ALYSSA Administration Atorvastatin Calcium 40 mg 12/12/18 17:00 12/22/18 17:21 Lipitor* PO 40 mg 1700 ALYSSA Administration Bisacodyl 10 mg 12/12/18 11:43 Dulcolax Supp* [place] DAILY PRN CONSTIPATION Docusate Sodium 100 mg 12/12/18 21:00 12/23/18 09:06 Colace Cap* PO Not Given BID ALYSSA Magnesium Hydroxide 30 ml 12/12/18 11:43 12/12/18 20:24 Milk Of Magnesia Liq* PO 30 ml Q6H PRN Administration CONSTIPATION Metoprolol Succinate 100 mg 12/13/18 09:00 12/23/18 09:05 Toprol Xl Tab* PO 100 mg DAILY ALYSSA Administration Multivitamins 1 tab 12/13/18 09:00 12/23/18 09:05 Theragran Tab* PO 1 tab DAILY ALYSSA Administration Oxycodone/Acetaminophen 1 tab 12/12/18 11:55 12/22/18 21:49 Percocet 5/325 Tab* PO 1 tab Q4H PRN Administration PAIN - MODERATE Pantoprazole Sodium 40 mg 12/13/18 09:00 12/23/18 09:05 Protonix Tab* PO 40 mg DAILY ALYSSA Administration Senna 2 tab 12/12/18 11:43 12/21/18 19:45 Senokot 8.6 Mg Tab* PO 2 tab BEDTIME PRN Administration CONSTIPATION Sertraline HCl 100 mg 12/13/18 09:00 12/23/18 09:05 Zoloft* PO 100 mg DAILY ALYSSA Administration Vital Signs: Vital Signs Temp Pulse Resp BP Pulse Ox 97.5 F 67 16 160/74 94 12/23/18 05:36 12/23/18 05:37 12/23/18 05:37 12/23/18 05:37 12/23/18 05:37 Exam: GENERAL: No acute distress. Alert and appropriate. LUNGS: Clear to auscultation bilaterally HEART: regular rate and rhythm ABDOMEN: Soft, +bowel sounds, non-tender, non-distended EXTREMITIES: Left knee wound C/D/I with sutures. NEUROLOGIC: Aphasia. Motor strength 5/5 except LLE due to pain. Sensation intact. Assessment/Plan: 1. Left total knee arthroplasty: PT/OT. WBAT LLE. f/u with Dr. Beverly. 2. Cognitive decline: working with OFFICE TECHNOLOGIST for expressive aphasia 3. DVT Prophylaxis: Eliquis 4. Advanced Directives: Sons are HCP. Full code 5. GERD: protonix 6. Hypertension: on metoprolol and norvasc. Add lisinopril. 7. Disposition: Will need answer from sons: either home with 24 hour care or [facility] 12/23/18 09:49
[2018-12-23] MEDS: Lisinopril TAB* 5 MG PO SCH (10:32)
[2018-12-23] MEDS: Atorvastatin* 40 MG TAB PO SCH (16:46)
[2018-12-23] MEDS: Senna TAB 8.6 mg* TAB PO PRN (20:08)
[2018-12-23] MEDS: oxyCODONE/Acetamin 5/325 MG* TAB PO PRN (22:47)
[2018-12-24] MEDS: Acetaminophen TAB* 325 MG PO PRN (04:25)
--- NOTE | 2018-12-24 08:57 | PN ---
Progress Note - Progress Note Date of Service: 12/24/18 Note: patient doing well with PT, pain well controlled. incision c/d; sutures removed without incident; NVI
[2018-12-24] MEDS: amLODIPine TAB* 5 MG PO SCH (09:58)
[2018-12-24] MEDS: Pantoprazole TAB * 40 MG TAB PO SCH (09:59)
[2018-12-24] MEDS: Metoprolol Succinate XL TAB* 100 MG PO SCH (09:59)
[2018-12-24] MEDS: Apixaban* 2.5 MG TAB PO SCH ×2 (09:59→21:16)
[2018-12-24] MEDS: Lisinopril TAB* 5 MG PO SCH (09:59)
[2018-12-24] MEDS: Vitamin THERAPEUTIC TAB PO SCH (09:59)
[2018-12-24] MEDS: Docusate CAP* 100 MG PO SCH ×2 (09:59→21:17)
[2018-12-24] MEDS: Sertraline* 100 MG TAB PO SCH (09:59)
--- NOTE | 2018-12-24 10:22 | PN ---
Progress Note Date of Service: 12/24/18 Note: ANNA MCKEON was visited. Nursing and therapy notes read and reviewed. Sutures removed this morning. No chest pain, shortness of breath or abdominal pain. Taking minimal pain medication, usually at night. Current Medications: Active Medications Generic Name Dose Route Start Last Admin Trade Name Freq PRN Reason Stop Dose Admin Acetaminophen 650 mg 12/12/18 11:43 12/24/18 04:25 Tylenol Tab* PO 650 mg Q6H PRN Administration MILD PAIN or TEMP > 100.4 Amlodipine Besylate 10 mg 12/13/18 09:00 12/24/18 09:58 Norvasc Tab* PO 10 mg DAILY ALYSSA Administration Apixaban 2.5 mg 12/12/18 21:00 12/24/18 09:59 Eliquis* PO 2.5 mg BID ALYSSA Administration Atorvastatin Calcium 40 mg 12/12/18 17:00 12/23/18 16:46 Lipitor* PO 40 mg 1700 ALYSSA Administration Bisacodyl 10 mg 12/12/18 11:43 Dulcolax Supp* [place] DAILY PRN CONSTIPATION Docusate Sodium 100 mg 12/12/18 21:00 12/24/18 09:59 Colace Cap* PO 100 mg BID ALYSSA Administration Lisinopril 5 mg 12/23/18 10:00 12/24/18 09:59 Prinivil Tab* PO 5 mg DAILY ALYSSA Administration Magnesium Hydroxide 30 ml 12/12/18 11:43 12/12/18 20:24 Milk Of Magnesia Liq* PO 30 ml Q6H PRN Administration CONSTIPATION Metoprolol Succinate 100 mg 12/13/18 09:00 12/24/18 09:59 Toprol Xl Tab* PO 100 mg DAILY ALYSSA Administration Multivitamins 1 tab 12/13/18 09:00 12/24/18 09:59 Theragran Tab* PO 1 tab DAILY ALYSSA Administration Oxycodone/Acetaminophen 1 tab 12/12/18 11:55 12/23/18 22:47 Percocet 5/325 Tab* PO 1 tab Q4H PRN Administration PAIN - MODERATE Pantoprazole Sodium 40 mg 12/13/18 09:00 12/24/18 09:59 Protonix Tab* PO 40 mg DAILY ALYSSA Administration Senna 2 tab 12/12/18 11:43 12/23/18 20:08 Senokot 8.6 Mg Tab* PO 2 tab BEDTIME PRN Administration CONSTIPATION Sertraline HCl 100 mg 12/13/18 09:00 12/24/18 09:59 Zoloft* PO 100 mg DAILY ALYSSA Administration Vital Signs: Vital Signs Temp Pulse Resp BP Pulse Ox 97.5 F 68 18 145/74 94 12/24/18 05:45 12/24/18 05:45 12/24/18 05:45 12/24/18 05:45 12/24/18 05:45 Exam: GENERAL: No acute distress. Alert and appropriate. LUNGS: Clear to auscultation bilaterally HEART: regular rate and rhythm ABDOMEN: Soft, +bowel sounds, non-tender, non-distended EXTREMITIES: Left knee incision C/D/I with sutures out NEUROLOGIC: Aphasia. Motor strength 5/5 except LLE due to pain. Sensation intact. Assessment/Plan: 1. Left total knee arthroplasty: PT/OT. WBAT LLE. f/u with Dr. Beverly. sutures out 12/24 by ortho. 2. Cognitive decline: working with TRAIN BRAKEMAN for expressive aphasia 3. DVT Prophylaxis: Eliquis 4. Advanced Directives: Sons are HCP. Full code 5. GERD: protonix 6. Hypertension: on metoprolol and norvasc. Added lisinopril 12/23. Follow VS 7. Disposition: Family has arranged 24h home care and plan is home on 12/26. 12/24/18 10:21
[2018-12-24] MEDS: Magnesium Hydroxide LIQ* 30 ML UDC PO PRN (16:08)
[2018-12-24] MEDS: Atorvastatin* 40 MG TAB PO SCH (16:54)
[2018-12-24 20:08] LABS: Urine Appearance Cloudy; Urine Bilirubin Negative (Negative); Urine Blood Negative (Negative); Urine Color Yellow; Urine Glucose Negative (Negative); Urine Ketones Negative (Negative); Urine Nitrite Negative (Negative); Urine Protein Negative (Negative); Urine Specific Gravity 1.019 (1.010-1.030); Urine Urobilinogen Negative (Negative)
[2018-12-24] MEDS: oxyCODONE/Acetamin 5/325 MG* TAB PO PRN (23:38)
[2018-12-25] MEDS: amLODIPine TAB* 5 MG PO SCH (08:31)
[2018-12-25] MEDS: Lisinopril TAB* 5 MG PO SCH (08:32)
[2018-12-25] MEDS: Pantoprazole TAB * 40 MG TAB PO SCH (08:32)
[2018-12-25] MEDS: Apixaban* 2.5 MG TAB PO SCH ×2 (08:32→20:12)
[2018-12-25] MEDS: Docusate CAP* 100 MG PO SCH ×2 (08:32→20:12)
[2018-12-25] MEDS: Metoprolol Succinate XL TAB* 100 MG PO SCH (08:32)
[2018-12-25] MEDS: Sertraline* 100 MG TAB PO SCH (08:32)
[2018-12-25] MEDS: Vitamin THERAPEUTIC TAB PO SCH (08:32)
[2018-12-25] MEDS ORDERED: Lisinopril TAB* 5 MG PO ONE (08:37)
--- NOTE | 2018-12-25 09:05 | PN ---
Progress Note Date of Service: 12/25/18 Note: ANNA MCKEON was visited. Nursing and therapy notes read and reviewed. No chest pain, shortness of breath or abdominal pain. BP still elevated. Nursing noted some urine frequency in evening and UA sent, but negative. Current Medications: Active Medications Generic Name Dose Route Start Last Admin Trade Name Freq PRN Reason Stop Dose Admin Acetaminophen 650 mg 12/12/18 11:43 12/24/18 04:25 Tylenol Tab* PO 650 mg Q6H PRN Administration MILD PAIN or TEMP > 100.4 Amlodipine Besylate 10 mg 12/13/18 09:00 12/25/18 08:31 Norvasc Tab* PO 10 mg DAILY ALYSSA Administration Apixaban 2.5 mg 12/12/18 21:00 12/25/18 08:32 Eliquis* PO 2.5 mg BID ALYSSA Administration Atorvastatin Calcium 40 mg 12/12/18 17:00 12/24/18 16:54 Lipitor* PO 40 mg 1700 ALYSSA Administration Bisacodyl 10 mg 12/12/18 11:43 Dulcolax Supp* [place] DAILY PRN CONSTIPATION Docusate Sodium 100 mg 12/12/18 21:00 12/25/18 08:32 Colace Cap* PO 100 mg BID ALYSSA Administration Lisinopril 10 mg 12/26/18 09:00 Prinivil Tab* PO DAILY ALYSSA Magnesium Hydroxide 30 ml 12/12/18 11:43 12/24/18 16:08 Milk Of Magnesia Liq* PO 30 ml Q6H PRN Administration CONSTIPATION Metoprolol Succinate 100 mg 12/13/18 09:00 12/25/18 08:32 Toprol Xl Tab* PO 100 mg DAILY ALYSSA Administration Multivitamins 1 tab 12/13/18 09:00 12/25/18 08:32 Theragran Tab* PO 1 tab DAILY ALYSSA Administration Oxycodone/Acetaminophen 1 tab 12/12/18 11:55 12/24/18 23:38 Percocet 5/325 Tab* PO 1 tab Q4H PRN Administration PAIN - MODERATE Pantoprazole Sodium 40 mg 12/13/18 09:00 12/25/18 08:32 Protonix Tab* PO 40 mg DAILY ALYSSA Administration Senna 2 tab 12/12/18 11:43 12/23/18 20:08 Senokot 8.6 Mg Tab* PO 2 tab BEDTIME PRN Administration CONSTIPATION Sertraline HCl 100 mg 12/13/18 09:00 12/25/18 08:32 Zoloft* PO 100 mg DAILY ALYSSA Administration Vital Signs: Vital Signs Temp Pulse Resp BP Pulse Ox 97.4 F 66 16 162/70 95 12/25/18 05:15 12/25/18 05:15 12/25/18 05:15 12/25/18 06:10 12/25/18 05:15 Lab Results: Laboratory Results - last 24 hr 12/24/18 19:35 Urine Color Yellow Urine Appearance Cloudy Urine pH 5.0 Ur Specific [place] 1.019 Urine Protein Negative Urine Ketones Negative Urine Blood Negative Urine Nitrate Negative Urine Bilirubin Negative Urine Urobilinogen Negative Ur Leukocyte Esterase Negative Urine Glucose Negative Exam: GENERAL: No acute distress. Alert and appropriate. LUNGS: Clear to auscultation bilaterally HEART: regular rate and rhythm ABDOMEN: Soft, +bowel sounds, non-tender, non-distended EXTREMITIES: Left knee incision C/D/I with sutures out NEUROLOGIC: Aphasia. Motor strength 5/5 except LLE due to pain. Sensation intact. Assessment/Plan: 1. Left total knee arthroplasty: PT/OT. WBAT LLE. f/u with Dr. Beverly. sutures out 12/24 by ortho. 2. Cognitive decline: working with MOTOR CARRIER INSPECTOR for expressive aphasia 3. DVT Prophylaxis: Eliquis 4. Advanced Directives: Sons are HCP. Full code 5. GERD: protonix 6. Hypertension: on metoprolol and norvasc. Added lisinopril 12/23 and will increase today to 10mg. Follow VS 7. Disposition: Family has arranged 24h home care and plan is home on 12/26. 12/25/18 09:05
[2018-12-25] MEDS: Atorvastatin* 40 MG TAB PO SCH (16:55)
[2018-12-25] MEDS: Senna TAB 8.6 mg* TAB PO PRN (20:12)
[2018-12-25] MEDS: oxyCODONE/Acetamin 5/325 MG* TAB PO PRN (23:17)
[2018-12-26 06:01] VITALS: BP 162/78
[2018-12-26] MEDS ORDERED: Lisinopril TAB* 5 MG PO SCH (09:00)
[2018-12-26] MEDS: amLODIPine TAB* 5 MG PO SCH (09:00)
[2018-12-26] MEDS: Pantoprazole TAB * 40 MG TAB PO SCH (09:01)
[2018-12-26] MEDS: Apixaban* 2.5 MG TAB PO SCH (09:01)
[2018-12-26] MEDS: Docusate CAP* 100 MG PO SCH (09:01)
[2018-12-26] MEDS: Sertraline* 100 MG TAB PO SCH (09:01)
[2018-12-26] MEDS: Vitamin THERAPEUTIC TAB PO SCH (09:01)
[2018-12-26] MEDS: Metoprolol Succinate XL TAB* 100 MG PO SCH (09:01)
[2018-12-26] MEDS: Acetaminophen TAB* 325 MG PO PRN (09:07)
--- NOTE | 2018-12-29 22:12 | DS ---
CC: Dr. Varma * DISCHARGE SUMMARY: DATE OF ADMISSION: 12/12/18 DATE OF DISCHARGE: 12/26/18 DISCHARGE DIAGNOSES: 1. Left total knee replacement. 2. Cognitive decline. 3. Expressive aphasia. 4. Gastroesophageal reflux disease. 5. Hypertension. HISTORY OF ILLNESS AND HOSPITAL COURSE: For complete history of the events leading up to his rehab stay, please see the history and physical dictated by me on 12/12/18. While on the rehab unit, the patient remained fairly stable from the medical point of view. His blood work remained stable. The patient was maintained on Eliquis for DVT prophylaxis. He continued to have difficulty with his cognition and had a very slow rebound from the surgery. He had a preexisting expressive aphasia, which remained throughout his rehab stay. The patient's knee wound healed well. His sutures were removed without difficulty. The patient otherwise was medically stable. He was seen by both Physical and Occupational Therapy and made good gains with both disciplines. With physical therapy at the time of admission, the patient required min-to-mod assistance to do a transfer. He was mod assist ambulate about 50 feet. With occupational therapy at the time of admission, the patient was max assist for upper body dressing, dependent for lower body dressing, dependent for putting on footwear, min-to-mod assist for toilet transfers. By the time of discharge, the patient was supervision for transfer, supervision for toileting, supervision for dressing, and supervision for ambulation. The patient required supervision because of his cognitive difficulties. The patient also worked with speech therapy while on the rehab unit. He remained with significant expressive impairment at the time of discharge. He had a moderate impairment in his cognition. The patient was sent home with 24-hour care on 12/26/18. DISCHARGE DIET: Consistent carbohydrate. DISCHARGE MEDICATIONS: 1. Eliquis 2.5 mg orally twice daily. 2. Lisinopril 10 mg daily. 3. Percocet 1 tablet every 6 hours as needed, not to exceed 2 per day. 4. Amlodipine 10 mg daily. 5. Toprol-XL 100 mg daily. 6. Zoloft 100 mg daily. 7. Lipitor 40 mg daily. 8. Omeprazole 20 mg daily. SERVICES AFTER DISCHARGE: Through [facility]. He is going to have 24-hour home care. Through visiting nurse service, he will have home nursing and home physical therapy. CONDITION AT DISCHARGE: Stable. DISPOSITION: To home. TIME SPENT: Time for this discharge was approximately 50 minutes, greater than half of that was spent with the patient, coordinating outpatient services. FOLLOWUP: The patient will follow up with Dr. Varma as well as his orthopedic surgeon, Dr. Patricia Beverly. [id number]/[facility] #: [id number] MTDD
== END 2018-12-26 13:58 | disposition home health service (06) | DRG 560 ==
LOC: PMRU 10:45
PROVIDERS: ADMIT Physical Medicine & Rehabilitation; ATTEND Physical Medicine & Rehabilitation
PROC: F07Z5ZZ Bed Mobility Treatment (ICD-10-PCS; principal; 2018-12-12)
PROC: F07Z9ZZ Gait Training/Functional Ambulation Treatment (ICD-10-PCS; 2018-12-12)
PROC: F07Z8ZZ Transfer Training Treatment (ICD-10-PCS; 2018-12-12)
PROC: F07Z4ZZ Wheelchair Mobility Treatment (ICD-10-PCS; 2018-12-12)
PROC: F08Z0ZZ Bathing/Showering Techniques Treatment (ICD-10-PCS; 2018-12-12)
PROC: F08Z1ZZ Dressing Techniques Treatment (ICD-10-PCS; 2018-12-12)
PROC: F08Z3ZZ Feeding/Eating Treatment (ICD-10-PCS; 2018-12-12)
PROC: F08Z2ZZ Grooming/Personal Hygiene Treatment (ICD-10-PCS; 2018-12-12)
PROC: F06Z6ZZ Communicative/Cognitive Integration Skills Treatment (ICD-10-PCS; 2018-12-12)
DX: Z47.1 Aftercare following joint replacement surgery (principal); R47.01 Aphasia; Z96.652 Presence of left artificial knee joint; F01.50 Vascular dementia, unspecified severity, without behavioral disturbance, psychotic disturbance, mood disturbance, and anxiety; R41.81 Age-related cognitive decline; F32.9 Major depressive disorder, single episode, unspecified; I12.9 Hypertensive chronic kidney disease with stage 1 through stage 4 chronic kidney disease, or unspecified chronic kidney disease; N18.9 Chronic kidney disease, unspecified; G47.33 Obstructive sleep apnea (adult) (pediatric); E74.39 Other disorders of intestinal carbohydrate absorption; K21.9 Gastro-esophageal reflux disease without esophagitis; Z79.899 Other long term (current) drug therapy; I69.319 Unspecified symptoms and signs involving cognitive functions following cerebral infarction
CPT/HCPCS: 36415; 80053; 81003; 85025; 90686; A9270-GY